=== PATIENT | male | born 1940 | race Caucasian/White ===

== ENCOUNTER 2016-03-29 10:40 | Inpatient (IN) | payer OTHER ==
[2016-03-29 11:04] VITALS: BMI 27.6
--- NOTE | 2016-03-29 13:53 | HP ---
Admission [facility] Chief Complaint: REHAB TX FOR DRUG TX Allergies/Adverse Reactions: Allergies Allergy/AdvReac Type Severity Reaction Status Date / Time No Known Allergies Allergy Verified 03/29/16 11:22 History of Present Illness: 75 Y/O H/M WITH A HX OF OPIOID DEPENDENCE AND USE OF COCAINE WITH SPORADIC CONSUMPTION OF A CAN OF BEER SEEKING REHAB TX. Exam Limitations: No Limitations - Ebola screening Have you traveled outside of the country in the last 21 days: No Have you had contact with anyone from an Ebola affected area: No Have you been sick,other than usual withdrawal symptoms: No Do you have a fever: No - Review of Systems Constitutional: No Symptoms Reported EENT: reports: Dental Problems (MISSING TEETH) Respiratory: reports: No Symptoms reported Cardiac: reports: No Symptoms Reported GI: reports: No Symptoms Reported : reports: No Symptoms Reported Musculoskeletal: reports: Joint Pain (LEFT KNEE PAIN/SWELLING DUE TO BUMPING INTO TABLE AT HOME 2 MONTHS AGO.) Integumentary: reports: No Symptoms Reported Neuro: reports: No Symptoms reported Endocrine: reports: No Symptoms Reported Hematology: reports: No Symptoms Reported Psychiatric: reports: Orientated x3 Other Systems: Reviewed and Negative Patient History - Patient Medical History Hx Anemia: No Hx Asthma: No Hx Chronic Obstructive Pulmonary Disease (COPD): No Hx Cardiac Disorders: No Hx Hypertension: No Hx Hypercholesterolemia: No HX Cerebrovascular Accident: No Hx Seizures: No Hx Diabetes: No Hx Gastrointestinal Disorders: No Hx Liver Disease: No Hx Genitourinary Disorders: No Hx Sexually Transmitted Disorders: No Hx Renal Disease (ESRD): No Hx Thyroid Disease: No Hx Human Immunodeficiency Virus (HIV): No (NEGATIVE HX) Hx Hepatitis C: No Hx Depression: No Hx Suicide Attempt: No (DENIES) Hx Bipolar Disorder: No Hx Schizophrenia: No - Patient Surgical History Past Surgical History: No Hx Neurologic Surgery: No Hx Cataract Extraction: No Hx Cardiac Surgery: No Hx Lung Surgery: No Hx Breast Surgery: No Hx Breast Biopsy: No Hx Abdominal Surgery: No Hx Appendectomy: No Hx Cholecystectomy: No Hx Genitourinary Surgery: No Hx Orthopedic Surgery: No Anesthesia Reaction: No - PPD History Previous Implant?: Yes Documented Results: Negative w/o proof Implanted On Prior [facility] Admission?: No PPD to be Administered?: Yes - Reproductive History Patient is a Female of Child Bearing Age (11 -55 yrs old): No (MALE) - Smoking Cessation Smoking history: Never smoked Have you smoked in the past 12 months: No Hx Chewing Tobacco Use: No Initiated information on smoking cessation: No - Substance & Tx. History Hx Alcohol Use: Yes (SPORADIC BEER) Hx Substance Use: Yes (COCAINE) Substance Use Type: Alcohol, Cocaine Hx Substance Use Treatment: Yes ([facility]) - Substances Abused Cocaine Route: Inhalation Frequency: 1-3 times last 30 days Amount used: 1 gram Age of first use: 62 Date of Last Use: 03/28/16 Alcohol Route: Oral Frequency: 1-3 times last 30 days Amount used: 1-2 beers Age of first use: 62 Date of Last Use: 03/29/16 Family Disease History - Family Disease History Family History: Denies Family Disease History: Other: Grandparent (GM RECENTLY AT 91) Admission Physical Exam [facility] - Vital Signs Vital Signs: Vital Signs - 24 hr 03/29/16 11:00 Temperature 98.7 F Pulse Rate 95 H Respiratory 18 Rate Blood Pressure 155/73 - Physical General Appearance: Yes: No Apparent Distress HEENTM: Yes: EOMI, Normocephalic, ERICA, Pharynx Normal Respiratory: Yes: Chest Non-Tender, Lungs Clear, Normal Breath Sounds, No Respiratory Distress Neck: Yes: Supple, Trachea in good position Breast: Yes: Breast Exam Deferred Cardiology: Yes: Regular Rhythm, Regular Rate, S1, S2 Abdominal: Yes: Normal Bowel Sounds, Non Tender, Soft Genitourinary: Yes: Other (N/C) Back: Yes: Within Normal Limits Musculoskeletal: Yes: full range of Motion, Gait Steady Extremities: Yes: Normal Range of Motion, Non-Tender, Swelling (LEFT KNEE SWELLING. 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 NML intact, Fully Oriented, Alert Integumentary: Yes: Dry, Warm Lymphatic: Yes: Within Normal Limits - Diagnostic (1) Cocaine dependence, uncomplicated Current Visit: Yes Status: Chronic (2) Varicose vein of leg Current Visit: Yes Status: Chronic (3) Left knee pain Current Visit: Yes Status: Chronic (4) Swelling of left knee joint Current Visit: Yes Status: Chronic Cleared for Admission [facility] - Detox or Rehab Claeared for Rehab Admission: Yes [facility] Breath Alcohol Content Breath Alcohol Content: 0.067 Urine Drug Screen - Results Drug Screen Negative: No Urine Drug Screen Results: PETRA-Cocaine, OPI-Opiates, MTD-Methadone
[2016-03-29] MEDS ORDERED: MAGNESIUM HYDROX 2400MG/30ML ORAL SUSPENSION 30 ML CUP PO PRN (14:11)
[2016-03-29] MEDS ORDERED: P-EPHED 60MG/TRIPROLIDI 2.5MG TABLET PO PRN (14:11)
[2016-03-29] MEDS ORDERED: MENTHOL/PHENOL 1 EACH UD MM PRN (14:11)
[2016-03-29] MEDS ORDERED: MAG HYDROX/AL HYDROX/SIMETH 30 ML UNIT-DOSE CUP PO PRN (14:11)
[2016-03-29] MEDS ORDERED: MAGNESIUM CITRATE 300 ML BOTTLE PO PRN (14:11)
[2016-03-29] MEDS ORDERED: ACETAMINOPHEN 325 MG TABLET (FP) PO PRN (14:11)
[2016-03-29] MEDS ORDERED: LOPERAMIDE HCL 2 MG CAPSULE PO PRN (14:11)
[2016-03-29] MEDS ORDERED: guaiFENesin/D-METHORPHAN HB 10 ML UNIT-DOSE CUPS PO PRN (14:11)
[2016-03-29] MEDS ORDERED: diphenhydrAMINE HCL 50 MG CAPSULE PO PRN (14:11)
[2016-03-29] MEDS ORDERED: TUBERCULIN PPD 5 TU/0.1ML VIAL ID ONE (19:42)
[2016-03-29] MEDS: THIAMINE HCL 100 MG TABLET (FP) PO SCH (21:07)
[2016-03-30] MEDS: PRENATAL VITAMINS W/ FOLIC ACID TABLET (FP) PO SCH (09:23)
[2016-03-30] MEDS: METHADONE HCL 10 MG TABLET PO SCH (09:23)
[2016-03-30 11:04] LABS: MCH 30.5 pg (25.7-33.7); MCHC 32.9 g/dl (32.0-35.9); MEAN CELL VOLUME 92.7 fl (80-96); MEAN PLT VOLUME 9.4 fl (7.5-11.1); PLATELET COUNT 260 K/MM3 (134-434); RDW 12.6 % (11.9-15.9); WHITE BLOOD COUNT 7.8 K/mm3 (4.0-10.0)
[2016-03-30 11:14] LABS: ALBUMIN 3.5 g/dl (3.4-5.0); ALK PHOS 83 U/L (45-117); ANION GAP 10 (8-16); BILIRUBIN,TOTAL 0.4 mg/dL (0.2-1.0); CALCIUM 8.6 mg/dL (8.5-10.1); CO2 30 mmol/L (21-32); CREATININE 0.9 mg/dL (0.7-1.3); GLUCOSE,RANDOM 94 mg/dL (74-106); SGOT/AST 28 U/L (15-37); SGPT/ALT 23 U/L (12-78); TOT PROT 7.8 g/dl (6.4-8.2)
[2016-03-30 11:31] LABS: SICKLE CELL SCREEN NEGATIVE (NEGATIVE)
--- NOTE | 2016-03-30 13:38 | EKG ---
Test Reason : Blood Pressure : / mmHG Vent. Rate : 066 BPM Atrial Rate : 066 BPM P-R Int : 144 ms QRS Dur : 074 ms QT Int : 448 ms P-R-T Axes : 062 051 052 degrees QTc Int : 469 ms SINUS RHYTHM WITH PREMATURE ATRIAL COMPLEXES IN A PATTERN OF BIGEMINY POSSIBLE LEFT ATRIAL ENLARGEMENT LEFT VENTRICULAR HYPERTROPHY ABNORMAL ECG NO PREVIOUS ECGS AVAILABLE Confirmed by GINA KAMINSKI, VAHID ([id number]) on 03/30/2016 1:37:21 PM Referred By: Stew Joya Confirmed By:VAHID FUENTES MD
[2016-03-30] MEDS: THIAMINE HCL 100 MG TABLET (FP) PO SCH (21:41)
[2016-03-31] MEDS: METHADONE HCL 10 MG TABLET PO SCH (07:06)
[2016-03-31] MEDS: PRENATAL VITAMINS W/ FOLIC ACID TABLET (FP) PO SCH (09:34)
[2016-03-31] MEDS: THIAMINE HCL 100 MG TABLET (FP) PO SCH (21:37)
[2016-04-01] MEDS: METHADONE HCL 40 MG DISPERSABLE TABLET PO SCH (06:22)
[2016-04-01] MEDS: PRENATAL VITAMINS W/ FOLIC ACID TABLET (FP) PO SCH (10:29)
--- NOTE | 2016-04-01 14:56 | HP ---
Psychiatrist Admission - Data Date of interview: 04/01/16 Admission source: [facility] Identifying data: This is the first [facility]west inpatient rehabilitation admission for this 75 year old male, father of one, residing in [place] apartment. Medical History: swollen legs,arthritis, knee pain, varicose veins. Psychiatric History: denies history of psychiatric treatment, on MMTP 40 mg/ daily. Physical/Sexual Abuse/Trauma History: denies history of sexual, physical and verbal abuse. Vital Signs: Vital Signs - 24 hr 04/01/16 04/01/16 04/01/16 00:30 03:30 07:13 Temperature 97.2 F L Pulse Rate 62 Respiratory 18 18 18 Rate Blood Pressure 158/86 Allergies/Adverse Reactions: Allergies Allergy/AdvReac Type Severity Reaction Status Date / Time No Known Allergies Allergy Verified 03/29/16 11:22 - Substance Abuse/Tx History Hx Alcohol Use: Yes Hx Substance Use: Yes Substance Use Type: Alcohol (beer 1-2 cans a day), Cocaine (daily use) Hx Substance Use Treatment: Yes - Admission Criteria Previous failed treatment: Yes Poor recovery environment: Yes Comorbidities: No Lacks judgement: Yes Mental Status Exam - Mental Status Exam Alert and Oriented to: Time, Place, Person Cognitive Function: Grossly Intact Patient Appearance: Well Groomed Mood: Hopeful Affect: Appropriate, Mood Congruent Patient Behavior: Appropriate, Cooperative Speech Pattern: Clear, Appropriate Voice Loudness: Normal Thought Process: Intact Thought Disorder: Not Present Hallucinations: Denies Suicidal Ideation: Denies Homicidal Ideation: Denies Insight/Judgement: Fair Sleep: Fair Appetite: Fair Muscle strength/Tone: Normal Gait/Station: Other (walking with be cane.) Psychiatric Findings - Problem List ([place] 1, 2,3) (1) Cocaine dependence, uncomplicated Current Visit: Yes Status: Chronic (2) Left knee pain Current Visit: Yes Status: Chronic (3) Swelling of left knee joint Current Visit: Yes Status: Chronic (4) Varicose vein of leg Current Visit: Yes Status: Chronic - Initial Treatment Plan Initial Treatment Plan: will monitor progress as needed.
[2016-04-01] MEDS: METHYL SALICYLATE/MENTHOL OINT 30 GM TUBE TP SCH (21:14)
[2016-04-01] MEDS: THIAMINE HCL 100 MG TABLET (FP) PO SCH (21:15)
[2016-04-02] MEDS: METHADONE HCL 40 MG DISPERSABLE TABLET PO SCH (05:58)
[2016-04-02] MEDS: METHYL SALICYLATE/MENTHOL OINT 30 GM TUBE TP SCH ×2 (10:08→21:42)
[2016-04-02] MEDS: PRENATAL VITAMINS W/ FOLIC ACID TABLET (FP) PO SCH (10:08)
[2016-04-02] MEDS: THIAMINE HCL 100 MG TABLET (FP) PO SCH (21:42)
[2016-04-03] MEDS: METHADONE HCL 40 MG DISPERSABLE TABLET PO SCH (06:09)
[2016-04-03] MEDS: PRENATAL VITAMINS W/ FOLIC ACID TABLET (FP) PO SCH (10:05)
[2016-04-03] MEDS: METHYL SALICYLATE/MENTHOL OINT 30 GM TUBE TP SCH ×2 (10:05→21:47)
[2016-04-03] MEDS: THIAMINE HCL 100 MG TABLET (FP) PO SCH (21:47)
[2016-04-04] MEDS: METHADONE HCL 40 MG DISPERSABLE TABLET PO SCH (06:32)
[2016-04-04] MEDS: PRENATAL VITAMINS W/ FOLIC ACID TABLET (FP) PO SCH (09:51)
[2016-04-04] MEDS: METHYL SALICYLATE/MENTHOL OINT 30 GM TUBE TP SCH ×2 (09:51→21:58)
[2016-04-04 14:38] LABS: URINE APPEARANCE CLEAR; URINE BILIRUBIN NEGATIVE (NEGATIVE); URINE BLOOD NEGATIVE (NEGATIVE); URINE COLOR YELLOW; URINE GLUCOSE (UA) NEGATIVE (NEGATIVE); URINE KETONE NEGATIVE (NEGATIVE); URINE LEUK ESTERASE NEGATIVE (NEGATIVE); URINE NITRITE NEGATIVE (NEGATIVE); URINE PROTEIN NEGATIVE (NEGATIVE); URINE UROBILINOGEN NEGATIVE E.U./dl (0.2-1.0)
[2016-04-04] MEDS: THIAMINE HCL 100 MG TABLET (FP) PO SCH (21:59)
[2016-04-04] MEDS: IBUPROFEN 400 MG TABLET (FP) PO PRN (21:59)
[2016-04-05] MEDS: METHADONE HCL 40 MG DISPERSABLE TABLET PO SCH (06:12)
[2016-04-05] MEDS: METHYL SALICYLATE/MENTHOL OINT 30 GM TUBE TP SCH ×2 (10:22→21:41)
[2016-04-05] MEDS: PRENATAL VITAMINS W/ FOLIC ACID TABLET (FP) PO SCH (10:22)
[2016-04-05] MEDS: THIAMINE HCL 100 MG TABLET (FP) PO SCH (21:41)
[2016-04-06] MEDS: METHADONE HCL 40 MG DISPERSABLE TABLET PO SCH (06:19)
[2016-04-06] MEDS: PRENATAL VITAMINS W/ FOLIC ACID TABLET (FP) PO SCH (09:52)
[2016-04-06] MEDS: METHYL SALICYLATE/MENTHOL OINT 30 GM TUBE TP SCH ×2 (09:53→22:19)
[2016-04-06] MEDS: IBUPROFEN 400 MG TABLET (FP) PO PRN (10:27)
[2016-04-06] MEDS: THIAMINE HCL 100 MG TABLET (FP) PO SCH (21:49)
[2016-04-07] MEDS: METHADONE HCL 40 MG DISPERSABLE TABLET PO SCH (06:09)
[2016-04-07] MEDS: PRENATAL VITAMINS W/ FOLIC ACID TABLET (FP) PO SCH (09:44)
[2016-04-07] MEDS: METHYL SALICYLATE/MENTHOL OINT 30 GM TUBE TP SCH ×2 (09:44→21:13)
[2016-04-07] MEDS: THIAMINE HCL 100 MG TABLET (FP) PO SCH (21:13)
[2016-04-08] MEDS: METHADONE HCL 40 MG DISPERSABLE TABLET PO SCH (06:17)
[2016-04-08] MEDS: PRENATAL VITAMINS W/ FOLIC ACID TABLET (FP) PO SCH (10:04)
[2016-04-08] MEDS: METHYL SALICYLATE/MENTHOL OINT 30 GM TUBE TP SCH ×2 (10:05→21:10)
[2016-04-08] MEDS: THIAMINE HCL 100 MG TABLET (FP) PO SCH (21:10)
[2016-04-09] MEDS: METHADONE HCL 40 MG DISPERSABLE TABLET PO SCH (05:57)
[2016-04-09] MEDS: METHYL SALICYLATE/MENTHOL OINT 30 GM TUBE TP SCH ×2 (10:13→21:06)
[2016-04-09] MEDS: PRENATAL VITAMINS W/ FOLIC ACID TABLET (FP) PO SCH (10:13)
[2016-04-09] MEDS: THIAMINE HCL 100 MG TABLET (FP) PO SCH (21:05)
[2016-04-10] MEDS: METHADONE HCL 40 MG DISPERSABLE TABLET PO SCH (05:51)
[2016-04-10] MEDS: PRENATAL VITAMINS W/ FOLIC ACID TABLET (FP) PO SCH (09:54)
[2016-04-10] MEDS: METHYL SALICYLATE/MENTHOL OINT 30 GM TUBE TP SCH ×2 (09:55→21:40)
[2016-04-10] MEDS: THIAMINE HCL 100 MG TABLET (FP) PO SCH (21:41)
[2016-04-11] MEDS: METHADONE HCL 40 MG DISPERSABLE TABLET PO SCH (06:31)
[2016-04-11] MEDS: METHYL SALICYLATE/MENTHOL OINT 30 GM TUBE TP SCH ×2 (09:57→21:58)
[2016-04-11] MEDS: PRENATAL VITAMINS W/ FOLIC ACID TABLET (FP) PO SCH (09:57)
[2016-04-11] MEDS: THIAMINE HCL 100 MG TABLET (FP) PO SCH (21:58)
[2016-04-12] MEDS: METHADONE HCL 40 MG DISPERSABLE TABLET PO SCH (06:27)
[2016-04-12] MEDS: METHYL SALICYLATE/MENTHOL OINT 30 GM TUBE TP SCH ×2 (12:15→21:30)
[2016-04-12] MEDS: PRENATAL VITAMINS W/ FOLIC ACID TABLET (FP) PO SCH (12:16)
[2016-04-12] MEDS: THIAMINE HCL 100 MG TABLET (FP) PO SCH (21:30)
[2016-04-13] MEDS: METHADONE HCL 40 MG DISPERSABLE TABLET PO SCH ×2 (06:26→06:27)
[2016-04-13] MEDS: PRENATAL VITAMINS W/ FOLIC ACID TABLET (FP) PO SCH (09:43)
[2016-04-13] MEDS: METHYL SALICYLATE/MENTHOL OINT 30 GM TUBE TP SCH ×2 (09:44→22:30)
[2016-04-13] MEDS: THIAMINE HCL 100 MG TABLET (FP) PO SCH (22:06)
[2016-04-14] MEDS: METHADONE HCL 40 MG DISPERSABLE TABLET PO SCH ×2 (06:42)
[2016-04-14] MEDS: METHYL SALICYLATE/MENTHOL OINT 30 GM TUBE TP SCH ×2 (09:54→21:03)
[2016-04-14] MEDS: PRENATAL VITAMINS W/ FOLIC ACID TABLET (FP) PO SCH (09:54)
[2016-04-14] MEDS: THIAMINE HCL 100 MG TABLET (FP) PO SCH (21:03)
[2016-04-15] MEDS: METHADONE HCL 40 MG DISPERSABLE TABLET PO SCH (05:58)
[2016-04-15] MEDS: PRENATAL VITAMINS W/ FOLIC ACID TABLET (FP) PO SCH (10:14)
[2016-04-15] MEDS: METHYL SALICYLATE/MENTHOL OINT 30 GM TUBE TP SCH ×2 (10:15→22:44)
[2016-04-15] MEDS: THIAMINE HCL 100 MG TABLET (FP) PO SCH (21:56)
[2016-04-16] MEDS: METHADONE HCL 40 MG DISPERSABLE TABLET PO SCH (06:04)
[2016-04-16] MEDS: PRENATAL VITAMINS W/ FOLIC ACID TABLET (FP) PO SCH (10:01)
[2016-04-16] MEDS: METHYL SALICYLATE/MENTHOL OINT 30 GM TUBE TP SCH ×2 (10:01→23:22)
[2016-04-16] MEDS ORDERED: LIDOCAINE 5% TOPICAL PATCH TP ONE (12:14)
[2016-04-16] MEDS: THIAMINE HCL 100 MG TABLET (FP) PO SCH (21:42)
[2016-04-17] MEDS: METHADONE HCL 40 MG DISPERSABLE TABLET PO SCH (06:40)
[2016-04-17] MEDS: METHYL SALICYLATE/MENTHOL OINT 30 GM TUBE TP SCH ×2 (09:56→21:26)
[2016-04-17] MEDS: LIDOCAINE 5% TOPICAL PATCH TP SCH (09:56)
[2016-04-17] MEDS: PRENATAL VITAMINS W/ FOLIC ACID TABLET (FP) PO SCH (09:56)
--- NOTE | 2016-04-17 10:48 | PN ---
Psychiatric Progress Note Vital Signs: Vital Signs Period Temp Pulse Resp BP Sys/San Pulse Ox Last 24 Hr 97.8 F 57 18-18 144/85 Date of Session: 04/17/16 Chief Complaint:: Anxiety HPI: Patient addressing Cocaine Dependence ROS: Pain left knee, Varicose vein of legs Current Medications: Active Medications Generic Name Dose Route Start Last Admin Trade Name Freq PRN Reason Stop Dose Admin Acetaminophen 650 mg 03/29/16 14:11 Tylenol - PO Q4H PRN PAIN Al Hydroxide/Mg Hydroxide 30 ml 03/29/16 14:11 Mylanta Oral Suspension - PO Q6H PRN DYSPEPSIA Diphenhydramine HCl 50 mg 03/29/16 14:11 04/13/16 22:06 Benadryl - PO 50 mg HSMR1 PRN Administration INSOMNIA Eucalyptus/Menthol/Phenol/Sorbitol 1 each 03/29/16 14:11 Cepastat Lozenge - MM Q4H PRN SORE THROAT Guaifenesin 10 ml 03/29/16 14:11 Robitussin Dm - PO Q6H PRN COUGH Ibuprofen 400 mg 03/29/16 14:11 04/06/16 10:27 Motrin - PO 400 mg Q6H PRN Administration SEVERE PAIN Lidocaine 1 patch 04/17/16 10:00 04/17/16 09:56 Lidoderm Patch - TP 1 patch DAILY FRANKO Administration Loperamide HCl 4 mg 03/29/16 14:11 Imodium - PO Q6H PRN DIARRHEA Magnesium Citrate 300 ml 03/29/16 14:11 Citroma - PO Q48H PRN CONSTIPATION Magnesium Hydroxide 30 ml 03/29/16 14:11 Milk Of Magnesia - PO DAILY PRN CONSTIPATION Methadone HCl 40 mg 04/13/16 06:00 04/17/16 06:40 Dolophine - PO 04/19/16 05:59 40 mg DAILY@0600 FRANKO Administration Methyl Salicylate 1 applic 04/01/16 22:00 04/17/16 09:56 José Luis-Bolanos - TP Not Given BID FRANKO Multivit/Folic Acid/Iron 1 tab 03/30/16 10:00 04/17/16 09:56 Vitamins ([facility]) - PO 1 tab DAILY FRANKO Administration Pseudoephedrine/Triprolidine 1 combo 03/29/16 14:11 Actifed - PO TID PRN NASAL CONGESTION Thiamine HCl 100 mg 03/29/16 22:00 04/16/16 21:42 Vitamin B1 - PO 100 mg HS FRANKO Administration Current Side Effect: No Lab tests ordered: Yes Lab tests reviewed: Yes Provider note:: Patient reports that he has been feeling anxious and requests that medication be ordered for that. Anxiolytic as well as adverse-effects of Vistaril discussed with patient and he agreed to try it Total face to face time:: 25 Mental Status Exam - Mental Status Exam Alert and Oriented to: Time, Place, Person Cognitive Function: Fair Patient Appearance: Well Groomed Mood: Anxious Affect: Appropriate Patient Behavior: Cooperative Speech Pattern: Clear Voice Loudness: Normal Thought Process: Intact Thought Disorder: Not Present Hallucinations: Denies Suicidal Ideation: Denies Insight/Judgement: Fair Sleep: Fair Appetite: Good Muscle strength/Tone: Normal Gait/Station: Normal Psychiatric Treatment Plan - Problem List (1) Cocaine dependence, uncomplicated Current Visit: Yes (2) Left knee pain Current Visit: Yes (3) Swelling of left knee joint Current Visit: Yes (4) Varicose vein of leg Current Visit: Yes Initial treatment plan: 1) Start Vistaril 25 mg po Q 4 hrs prn for anxiety. 2) Monitor progress
[2016-04-17] MEDS: THIAMINE HCL 100 MG TABLET (FP) PO SCH (21:26)
[2016-04-18] MEDS: METHADONE HCL 40 MG DISPERSABLE TABLET PO SCH (06:33)
[2016-04-18] MEDS: PRENATAL VITAMINS W/ FOLIC ACID TABLET (FP) PO SCH (09:57)
[2016-04-18] MEDS: LIDOCAINE 5% TOPICAL PATCH TP SCH (09:57)
[2016-04-18] MEDS: METHYL SALICYLATE/MENTHOL OINT 30 GM TUBE TP SCH ×2 (09:58→21:38)
[2016-04-18] MEDS: THIAMINE HCL 100 MG TABLET (FP) PO SCH (21:38)
[2016-04-19] MEDS: METHADONE HCL 40 MG DISPERSABLE TABLET PO SCH (06:25)
[2016-04-19] MEDS: METHYL SALICYLATE/MENTHOL OINT 30 GM TUBE TP SCH ×2 (09:31→22:09)
[2016-04-19] MEDS: LIDOCAINE 5% TOPICAL PATCH TP SCH (09:31)
[2016-04-19] MEDS: PRENATAL VITAMINS W/ FOLIC ACID TABLET (FP) PO SCH (09:32)
[2016-04-19] MEDS: THIAMINE HCL 100 MG TABLET (FP) PO SCH (21:35)
[2016-04-19] MEDS: hydrOXYzine PAMOATE 25 MG CAPSULE (FP) PO PRN (21:36)
[2016-04-20] MEDS: METHADONE HCL 40 MG DISPERSABLE TABLET PO SCH (05:59)
[2016-04-20] MEDS: LIDOCAINE 5% TOPICAL PATCH TP SCH (09:44)
[2016-04-20] MEDS: PRENATAL VITAMINS W/ FOLIC ACID TABLET (FP) PO SCH (09:44)
[2016-04-20] MEDS: hydrOXYzine PAMOATE 25 MG CAPSULE (FP) PO PRN ×2 (09:45→21:31)
[2016-04-20] MEDS: METHYL SALICYLATE/MENTHOL OINT 30 GM TUBE TP SCH ×2 (10:29→21:32)
[2016-04-20] MEDS: THIAMINE HCL 100 MG TABLET (FP) PO SCH (21:31)
[2016-04-21] MEDS: METHADONE HCL 40 MG DISPERSABLE TABLET PO SCH (06:20)
[2016-04-21] MEDS: LIDOCAINE 5% TOPICAL PATCH TP SCH (09:34)
[2016-04-21] MEDS: PRENATAL VITAMINS W/ FOLIC ACID TABLET (FP) PO SCH (09:34)
[2016-04-21] MEDS: METHYL SALICYLATE/MENTHOL OINT 30 GM TUBE TP SCH ×2 (09:35→21:54)
[2016-04-21] MEDS: hydrOXYzine PAMOATE 25 MG CAPSULE (FP) PO PRN ×2 (09:36→21:38)
[2016-04-21] MEDS: THIAMINE HCL 100 MG TABLET (FP) PO SCH (21:38)
[2016-04-22] MEDS: METHADONE HCL 40 MG DISPERSABLE TABLET PO SCH (06:21)
[2016-04-22] MEDS: PRENATAL VITAMINS W/ FOLIC ACID TABLET (FP) PO SCH (09:48)
[2016-04-22] MEDS: LIDOCAINE 5% TOPICAL PATCH TP SCH (09:49)
[2016-04-22] MEDS: hydrOXYzine PAMOATE 25 MG CAPSULE (FP) PO PRN ×2 (09:50→21:45)
[2016-04-22] MEDS: METHYL SALICYLATE/MENTHOL OINT 30 GM TUBE TP SCH ×2 (09:50→21:45)
[2016-04-22] MEDS: THIAMINE HCL 100 MG TABLET (FP) PO SCH (21:45)
[2016-04-23] MEDS: METHADONE HCL 40 MG DISPERSABLE TABLET PO SCH (06:07)
[2016-04-23] MEDS: PRENATAL VITAMINS W/ FOLIC ACID TABLET (FP) PO SCH (09:25)
[2016-04-23] MEDS: METHYL SALICYLATE/MENTHOL OINT 30 GM TUBE TP SCH ×2 (09:26→23:05)
[2016-04-23] MEDS: hydrOXYzine PAMOATE 25 MG CAPSULE (FP) PO PRN (09:26)
[2016-04-23] MEDS: LIDOCAINE 5% TOPICAL PATCH TP SCH (09:27)
--- NOTE | 2016-04-23 11:13 | PN ---
Psychiatric Progress Note Vital Signs: Vital Signs Period Temp Pulse Resp BP Sys/San [place]ulse Ox Last 24 Hr 97.5 F 70-70 18-18 152-156/69-80 Date of Session: 04/23/16 Chief Complaint:: Anxiety HPI: Patient addressing Alcohol Dependence ROS: Left knee pain, Varicose Vein Current Medications: Active Medications Generic Name Dose Route Start Last Admin Trade Name Freq PRN Reason Stop Dose Admin Acetaminophen 650 mg 03/29/16 14:11 Tylenol - PO Q4H PRN PAIN Al Hydroxide/Mg Hydroxide 30 ml 03/29/16 14:11 Mylanta Oral Suspension - PO Q6H PRN DYSPEPSIA Diphenhydramine HCl 50 mg 03/29/16 14:11 04/13/16 22:06 Benadryl - PO 50 mg HSMR1 PRN Administration INSOMNIA Eucalyptus/Menthol/Phenol/Sorbitol 1 each 03/29/16 14:11 Cepastat Lozenge - MM Q4H PRN SORE THROAT Guaifenesin 10 ml 03/29/16 14:11 Robitussin Dm - PO Q6H PRN COUGH Hydroxyzine Pamoate 50 mg 04/23/16 11:11 Vistaril - PO Q4H PRN ANXIETY Ibuprofen 400 mg 03/29/16 14:11 04/06/16 10:27 Motrin - PO 400 mg Q6H PRN Administration SEVERE PAIN Lidocaine 1 patch 04/17/16 10:00 04/23/16 09:27 Lidoderm Patch - TP 1 patch DAILY FRANKO Administration Loperamide HCl 4 mg 03/29/16 14:11 Imodium - PO Q6H PRN DIARRHEA Magnesium Citrate 300 ml 03/29/16 14:11 Citroma - PO Q48H PRN CONSTIPATION Magnesium Hydroxide 30 ml 03/29/16 14:11 Milk Of Magnesia - PO DAILY PRN CONSTIPATION Methadone HCl 40 mg 04/19/16 06:00 04/23/16 06:07 Dolophine - PO 40 mg DAILY@0600 FRANKO Administration Methyl Salicylate 1 applic 04/01/16 22:00 04/23/16 09:26 José Luis-Bolanos - TP Not Given BID FRANKO Multivit/Folic Acid/Iron 1 tab 03/30/16 10:00 04/23/16 09:25 Vitamins ([facility]) - PO 1 tab DAILY FRANKO Administration Pseudoephedrine/Triprolidine 1 combo 03/29/16 14:11 Actifed - PO TID PRN NASAL CONGESTION Thiamine HCl 100 mg 03/29/16 22:00 04/22/16 21:45 Vitamin B1 - PO 100 mg HS FRANKO Administration Medication(s) Change(s): Increase Vistaril dosage to 50 mg po Q 4hrs prn for anxiety Current Side Effect: No Lab tests ordered: Yes Lab tests reviewed: Yes Provider note:: Patient reports that he still experiences difficulty to sleep despite taking Vistaril 25 mg po Q 4hrs prn. Requests that Vistaril dosage be increased Total face to face time:: 25 Mental Status Exam - Mental Status Exam Alert and Oriented to: Time, Place, Person Cognitive Function: Fair Patient Appearance: Well Groomed Mood: Hopeful, Euthymic Affect: Appropriate Patient Behavior: Cooperative Speech Pattern: Clear Voice Loudness: Normal Thought Process: Intact Thought Disorder: Not Present Hallucinations: Denies Suicidal Ideation: Denies Homicidal Ideation: Denies Insight/Judgement: Fair Sleep: Fair Appetite: Good Muscle strength/Tone: Normal Gait/Station: Normal Psychiatric Treatment Plan - Problem List (1) Cocaine dependence, uncomplicated Current Visit: Yes (2) Left knee pain Current Visit: Yes (3) Swelling of left knee joint Current Visit: Yes (4) Varicose vein of leg Current Visit: Yes Initial treatment plan: 1) Discontinue Vistaril 25 mg po Q 4hrs prn for anxiety. 2) Start Viistaril 50 mg po Q 4 hrs prn for anxiety. 3) Monitor progress
[2016-04-23] MEDS: hydrOXYzine PAMOATE 50 MG CAPSULE (FP) PO PRN (21:58)
[2016-04-23] MEDS: THIAMINE HCL 100 MG TABLET (FP) PO SCH (21:58)
[2016-04-24] MEDS: METHADONE HCL 40 MG DISPERSABLE TABLET PO SCH (06:18)
[2016-04-24] MEDS: LIDOCAINE 5% TOPICAL PATCH TP SCH (09:44)
[2016-04-24] MEDS: PRENATAL VITAMINS W/ FOLIC ACID TABLET (FP) PO SCH (09:44)
[2016-04-24] MEDS: METHYL SALICYLATE/MENTHOL OINT 30 GM TUBE TP SCH ×2 (09:45→21:10)
[2016-04-24] MEDS: hydrOXYzine PAMOATE 50 MG CAPSULE (FP) PO PRN ×2 (09:45→21:10)
[2016-04-24] MEDS: THIAMINE HCL 100 MG TABLET (FP) PO SCH (21:10)
[2016-04-25] MEDS: METHADONE HCL 40 MG DISPERSABLE TABLET PO SCH (05:49)
--- NOTE | 2016-04-25 09:15 | PN ---
Psychiatric Progress Note Vital Signs: Vital Signs Period Temp Pulse Resp BP Sys/San [place]ulse Ox Last 24 Hr 98.3 F 55 18-18 159/82 Date of Session: 04/25/16 Chief Complaint:: Psychiatrist Discharge Note HPI: Patient addressing Cocaine Dependence ROS: Left knee pain, Varicose Vein Current Medications: Active Medications Generic Name Dose Route Start Last Admin Trade Name Freq PRN Reason Stop Dose Admin Acetaminophen 650 mg 03/29/16 14:11 Tylenol - PO Q4H PRN PAIN Al Hydroxide/Mg Hydroxide 30 ml 03/29/16 14:11 Mylanta Oral Suspension - PO Q6H PRN DYSPEPSIA Diphenhydramine HCl 50 mg 03/29/16 14:11 04/13/16 22:06 Benadryl - PO 50 mg HSMR1 PRN Administration INSOMNIA Eucalyptus/Menthol/Phenol/Sorbitol 1 each 03/29/16 14:11 Cepastat Lozenge - MM Q4H PRN SORE THROAT Guaifenesin 10 ml 03/29/16 14:11 Robitussin Dm - PO Q6H PRN COUGH Hydroxyzine Pamoate 50 mg 04/23/16 11:11 04/24/16 21:10 Vistaril - PO 50 mg Q4H PRN Administration ANXIETY Ibuprofen 400 mg 03/29/16 14:11 04/06/16 10:27 Motrin - PO 400 mg Q6H PRN Administration SEVERE PAIN Lidocaine 1 patch 04/17/16 10:00 04/24/16 09:44 Lidoderm Patch - TP 1 patch DAILY FRANKO Administration Loperamide HCl 4 mg 03/29/16 14:11 Imodium - PO Q6H PRN DIARRHEA Magnesium Citrate 300 ml 03/29/16 14:11 Citroma - PO Q48H PRN CONSTIPATION Magnesium Hydroxide 30 ml 03/29/16 14:11 Milk Of Magnesia - PO DAILY PRN CONSTIPATION Methadone HCl 40 mg 04/25/16 06:00 04/25/16 05:49 Dolophine - PO 05/01/16 05:59 40 mg DAILY@0600 FRANKO Administration Methyl Salicylate 1 applic 04/01/16 22:00 04/24/16 21:10 José Luis-Bolanos - TP Not Given BID FRANKO Multivit/Folic Acid/Iron 1 tab 03/30/16 10:00 04/24/16 09:44 Vitamins ([facility]) - PO 1 tab DAILY FRANKO Administration Pseudoephedrine/Triprolidine 1 combo 03/29/16 14:11 Actifed - PO TID PRN NASAL CONGESTION Thiamine HCl 100 mg 03/29/16 22:00 04/24/16 21:10 Vitamin B1 - PO 100 mg HS FRANKO Administration Current Side Effect: No Lab tests ordered: Yes Lab tests reviewed: Yes Provider note:: Patient will complete this program on 04/26/16. He has met his treatment goals and will continue to address his issues in outpatient treatment at [facility]. Told health underwriter that from his participation in this program, he has learned the importance having a sober support network in order to maintain abstinence. He is stable for discharge on 04/26/16 Total face to face time:: 35 Mental Status Exam - Mental Status Exam Alert and Oriented to: Time, Place, Person Cognitive Function: Fair Patient Appearance: Well Groomed Mood: Hopeful, Euthymic Affect: Appropriate Patient Behavior: Cooperative Speech Pattern: Clear Voice Loudness: Normal Thought Process: Intact Thought Disorder: Not Present Hallucinations: Denies Suicidal Ideation: Denies Homicidal Ideation: Denies Insight/Judgement: Fair Sleep: Fair Appetite: Fair Muscle strength/Tone: Normal Gait/Station: Normal Psychiatric Treatment Plan - Problem List (1) Cocaine dependence, uncomplicated Current Visit: Yes (2) Left knee pain Current Visit: Yes (3) Swelling of left knee joint Current Visit: Yes (4) Varicose vein of leg Current Visit: Yes Initial treatment plan: Patient will be discharged tomorrow and referred t [facility] for outpatient treatment
[2016-04-25] MEDS: PRENATAL VITAMINS W/ FOLIC ACID TABLET (FP) PO SCH (09:49)
[2016-04-25] MEDS: LIDOCAINE 5% TOPICAL PATCH TP SCH (09:50)
[2016-04-25] MEDS: METHYL SALICYLATE/MENTHOL OINT 30 GM TUBE TP SCH ×2 (09:50→23:04)
[2016-04-25] MEDS: hydrOXYzine PAMOATE 50 MG CAPSULE (FP) PO PRN ×2 (09:51→21:18)
[2016-04-25] MEDS: THIAMINE HCL 100 MG TABLET (FP) PO SCH (21:18)
[2016-04-26] MEDS: METHADONE HCL 40 MG DISPERSABLE TABLET PO SCH (06:19)
[2016-04-26] MEDS: hydrOXYzine PAMOATE 50 MG CAPSULE (FP) PO PRN ×2 (06:20→09:45)
[2016-04-26 06:46] VITALS: TEMP 98.2
[2016-04-26 07:37] VITALS: BP 159/83; PULSE 61
[2016-04-26] MEDS: PRENATAL VITAMINS W/ FOLIC ACID TABLET (FP) PO SCH (09:08)
[2016-04-26] MEDS: LIDOCAINE 5% TOPICAL PATCH TP SCH (09:09)
[2016-04-26] MEDS: METHYL SALICYLATE/MENTHOL OINT 30 GM TUBE TP SCH (09:11)
== END 2016-04-26 10:20 | disposition home or self-care (01) | DRG 895 ==
LOC: YASAS 10:40 → Y3W 12:13
PROVIDERS: ADMIT Psychiatry & Neurology Psychiatry; ATTEND Psychiatry & Neurology Psychiatry
PROC: HZ42ZZZ Group Counseling for Substance Abuse Treatment, Cognitive-Behavioral (ICD-10-PCS; principal; 2016-04-26)
DX: F14.20 Cocaine dependence, uncomplicated (principal); M25.561 Pain in right knee; I83.93 Asymptomatic varicose veins of bilateral lower extremities
CPT/HCPCS: 36415; 80053; 81003; 85027; 85660; 86593; 93005; 93010

== ENCOUNTER 2017-07-21 10:36 | Inpatient (IN) | payer OTHER ==
[2017-07-21 11:29] VITALS: BMI 26.5
--- NOTE | 2017-07-21 13:53 | HP ---
Admission ROS [facility] Chief Complaint: I want to go to rehab Allergies/Adverse Reactions: Allergies Allergy/AdvReac Type Severity Reaction Status Date / Time No Known Allergies Allergy Verified 07/21/17 11:46 History of Present Illness: 76 years old male with long history of cocaine dependence has depression hypertension ambulation with cane methadone 40 mg po daily is admitted to rehab Exam Limitations: No Limitations - Ebola screening Have you traveled outside of the country in the last 21 days: No (N) Have you had contact with anyone from an Ebola affected area: No Have you been sick,other than usual withdrawal symptoms: No Do you have a fever: No - Review of Systems Constitutional: Changes in sleep EENT: reports: No Symptoms Reported Respiratory: reports: No Symptoms reported Cardiac: reports: No Symptoms Reported GI: reports: No Symptoms Reported : reports: No Symptoms Reported Musculoskeletal: reports: Joint Pain (left knee trauma x 2-3 weeks ago) Integumentary: reports: No Symptoms Reported Neuro: reports: No Symptoms reported Endocrine: reports: No Symptoms Reported Hematology: reports: No Symptoms Reported Psychiatric: reports: Judgement Intact, Orientated x3, Anxious, Depressed Other Systems: Reviewed and Negative Patient History - Patient Medical History Hx Anemia: No Hx Asthma: No Hx Chronic Obstructive Pulmonary Disease (COPD): No Hx Cancer: No Hx Cardiac Disorders: No Hx Congestive Heart Failure: No Hx Hypertension: No Hx Hypercholesterolemia: No Hx Pacemaker: No HX Cerebrovascular Accident: No Hx Seizures: No Hx Dementia: No Hx Diabetes: No Hx Gastrointestinal Disorders: No Hx Liver Disease: No Hx Genitourinary Disorders: No Hx Sexually Transmitted Disorders: No Hx Renal Disease (ESRD): No Hx Thyroid Disease: No Hx Human Immunodeficiency Virus (HIV): No (NEGATIVE HX) Hx Hepatitis C: No Hx Depression: Yes Hx Suicide Attempt: No Hx Bipolar Disorder: No Hx Schizophrenia: No - Patient Surgical History Past Surgical History: No Hx Neurologic Surgery: No Hx Cataract Extraction: No Hx Cardiac Surgery: No Hx Lung Surgery: No Hx Breast Surgery: No Hx Breast Biopsy: No Hx Abdominal Surgery: No Hx Appendectomy: No Hx Cholecystectomy: No Hx Genitourinary Surgery: No Hx Orthopedic Surgery: No - PPD History Previous Implant?: Yes Documented Results: Negative w/proof Implanted On Prior R Admission?: Yes Date: 03/31/16 PPD to be Administered?: Yes - Smoking Cessation Smoking history: Never smoked Have you smoked in the past 12 months: No Hx Chewing Tobacco Use: No Initiated information on smoking cessation: No - Substance & Tx. History Hx Alcohol Use: Yes Hx Substance Use: Yes Substance Use Type: Alcohol, Cocaine, Heroin Hx Substance Use Treatment: Yes (2016 [facility]) - Substances Abused Cocaine Route: Inhalation Frequency: 1-2 times per week Amount used: $30 Age of first use: 62 Date of Last Use: 07/20/17 Alcohol Route: Oral Frequency: Daily Amount used: 1-2 12 oz beers Age of first use: 62 Date of Last Use: 07/21/17 Family Disease History - Family Disease History Family Disease History: Other: Grandparent (GM RECENTLY AT 91), Father ( ), Mother () Admission Physical Exam [facility] - Vital Signs Vital Signs: Vital Signs - 24 hr 07/21/17 11:25 Temperature 97.6 F Pulse Rate 68 Respiratory 18 Rate Blood Pressure 166/82 - Physical General Appearance: Yes: No Apparent Distress, Nourished, Appropriately Dressed HEENTM: Yes: Hearing grossly Normal, Normocephalic, Normal Voice Respiratory: Yes: Chest Non-Tender, Lungs Clear, Normal Breath Sounds, No Respiratory Distress, No Accessory Muscle Use Neck: Yes: Supple, Trachea in good position Breast: Yes: Breasts Symetrical, No Discharge Cardiology: Yes: Regular Rhythm, Regular Rate, S1, S2 Abdominal: Yes: Normal Bowel Sounds, Non Tender, Flat, Soft Genitourinary: Yes: Within Normal Limits Back: Yes: Normal Inspection Musculoskeletal: Yes: Gait Steady (cane), Joint swelling (left knee), Muscle Pain (left knee), Muscle weakness (lef knee) Extremities: Yes: Non-Tender, Swelling (left knee) Neurological: Yes: Fully Oriented, Alert, Normal Response, Depressed Affect Integumentary: Yes: Normal Color, Warm Lymphatic: Yes: Within Normal Limits - Diagnostic (1) Methadone maintenance therapy patient Current Visit: Yes Status: Chronic Comment: 40 mg (2) Hypertension Current Visit: Yes Status: Chronic Qualifiers: Hypertension type: essential hypertension Qualified Code(s): I10 - Essential (primary) hypertension (3) Use of cane as ambulatory aid Current Visit: Yes Status: Chronic (4) Cocaine dependence, uncomplicated Current Visit: Yes Status: Acute (5) Swelling of left knee joint Current Visit: Yes Status: Chronic Cleared for Admission [facility] - Detox or Rehab [facility] Level of Care: Observation Bed Detox Regimen/Protocol: Not Applicable Claeared for Rehab Admission: Yes [facility] Breath Alcohol Content Breath Alcohol Content: 0.061 Urine Drug Screen - Results Drug Screen Negative: No Urine Drug Screen Results: PETRA-Cocaine, MTD-Methadone Inpatient Rehab Admission - Initial Determination Are CD services needed?: Yes Free of communicable disease: Yes Not in need of hospitalization: Yes - Rehab Admission Criteria Previous failed treatment: Yes Poor recovery environment: Yes Comorbidities: Yes Lacks judgement: No Patient is meeting Inpatient Rehab admission criteria:: Yes
[2017-07-21] MEDS ORDERED: MAGNESIUM HYDROX 2400MG/30ML ORAL SUSPENSION 30 ML CUP PO PRN (13:56)
[2017-07-21] MEDS ORDERED: MENTHOL/PHENOL 1 EACH UD MM PRN (13:56)
[2017-07-21] MEDS ORDERED: ACETAMINOPHEN 325 MG TABLET (FP) PO PRN (13:56)
[2017-07-21] MEDS ORDERED: MAG HYDROX/AL HYDROX/SIMETH 30 ML UNIT-DOSE CUP PO PRN (13:56)
[2017-07-21] MEDS ORDERED: guaiFENesin/D-METHORPHAN HB 10 ML UNIT-DOSE CUPS PO PRN (13:56)
[2017-07-21] MEDS ORDERED: MAGNESIUM CITRATE 300 ML BOTTLE PO PRN (13:56)
[2017-07-21] MEDS ORDERED: LOPERAMIDE HCL 2 MG CAPSULE PO PRN (13:56)
[2017-07-21] MEDS ORDERED: P-EPHED 60MG/TRIPROLIDI 2.5MG TABLET PO PRN (13:56)
[2017-07-21] MEDS ORDERED: TUBERCULIN PPD 5 TU/0.1ML VIAL ID ONE (18:10)
[2017-07-21] MEDS: amLODIPine BESYLATE 5 MG TABLET (FP) PO SCH ×2 (18:15→21:57)
[2017-07-21] MEDS: THIAMINE HCL 100 MG TABLET (FP) PO SCH (21:57)
[2017-07-22 02:20] LABS: URINE APPEARANCE CLEAR; URINE BILIRUBIN NEGATIVE (<2.0 mg/dL); URINE COLOR STRAW; URINE GLUCOSE (UA) NEGATIVE (NEGATIVE); URINE KETONE NEGATIVE (NEGATIVE); URINE LEUK ESTERASE NEGATIVE (NEGATIVE); URINE NITRITE NEGATIVE (NEGATIVE); URINE PROTEIN NEGATIVE (NEGATIVE); URINE UROBILINOGEN NEGATIVE mg/dL (0.2-1.0)
--- NOTE | 2017-07-22 09:01 | HP ---
Psychiatrist Admission - Data Date of interview: 07/22/17 Admission source: Self-referred Identifying data: This is the second [facility] admission for this 76 years old male, father of a 41 years old son, unemployed receiving social security, living in a [place] apartment Medical History: Significant for hypertension, arthritis mostly of left knee, and varicose vein. Patient is on methadone 40mg/day Psychiatric History: Denies history of previous psychiatric treatment Physical/Sexual Abuse/Trauma History: Denies history of emotional, physical or sexual abuse as well as DV relationship. No service Additional Comment: Denies criminal history Vital Signs: Vital Signs - 24 hr 07/21/17 07/21/17 07/21/17 11:25 17:55 21:00 Temperature 97.6 F 99.1 F Pulse Rate 68 64 62 Respiratory 18 18 Rate Blood Pressure 166/82 150/87 169/81 07/22/17 07/22/17 07/22/17 01:03 03:30 07:11 Temperature 99.9 F H Pulse Rate 64 Respiratory 18 18 18 Rate Blood Pressure 152/73 Allergies/Adverse Reactions: Allergies Allergy/AdvReac Type Severity Reaction Status Date / Time No Known Allergies Allergy Verified 07/21/17 11:46 Date of last physical exam: 07/21/17 Concur with the findings of this exam: Yes - Substance Abuse/Tx History Hx Alcohol Use: Yes Hx Substance Use: Yes Substance Use Type: Alcohol (Started drinking alcohol at age 62, consumes 1-2x 12oz of beer daily. Last drank on 07/21/17), Cocaine (Started using cocaine at age 62, consumes $30 worth 1-2 times weekly. Last used on 07/20/17) Hx Substance Use Treatment: Yes (one previous inpt rehab @ [facility]. Currently attends [facility]) Mental Status Exam - Mental Status Exam Alert and Oriented to: Time Cognitive Function: Fair Patient Appearance: Well Groomed Mood: Anxious (mildly) Affect: Appropriate Patient Behavior: Cooperative Speech Pattern: Clear Voice Loudness: Normal Thought Process: Intact, Goal Oriented Hallucinations: Denies Suicidal Ideation: Denies Homicidal Ideation: Denies Insight/Judgement: Fair Sleep: Fair Appetite: Fair Muscle strength/Tone: Normal Gait/Station: Normal Psychiatric Findings - Problem List ([place] 1, 2,3) (1) Alcohol dependence Current Visit: Yes Status: Acute (2) Cocaine dependence Current Visit: Yes Status: Acute (3) Opioid dependence on agonist therapy Current Visit: Yes Status: Chronic (4) Substance-induced anxiety disorder Current Visit: Yes Status: Acute (5) Hypertension Current Visit: Yes Status: Chronic Qualifiers: Hypertension type: essential hypertension Qualified Code(s): I10 - Essential (primary) hypertension (6) Swelling of left knee joint Current Visit: Yes Status: Chronic (7) Use of cane as ambulatory aid Current Visit: Yes Status: Chronic (8) Left knee pain Current Visit: No Status: Chronic - Initial Treatment Plan Initial Treatment Plan: Monitor progress
[2017-07-22 10:13] LABS: HEMATOCRIT 37.2 % (35.4-49); HEMOGLOBIN 12.2 GM/dL (11.7-16.9); MCH 31.8 pg (25.7-33.7); MCHC 32.9 g/dl (32.0-35.9); MEAN CELL VOLUME 96.7 fl (80-96); MEAN PLT VOLUME 9.7 fl (7.5-11.1); PLATELET COUNT 243 K/MM3 (134-434); RBC 3.85 M/mm3 (4.00-5.60); RDW 12.7 % (11.9-15.9); WHITE BLOOD COUNT 5.6 K/mm3 (4.0-10.0)
[2017-07-22] MEDS: amLODIPine BESYLATE 5 MG TABLET (FP) PO SCH ×2 (10:40→22:03)
[2017-07-22] MEDS: PRENATAL VITAMINS W/ FOLIC ACID TABLET (FP) PO SCH (10:40)
[2017-07-22] MEDS: METHADONE HCL 40 MG DISPERSABLE TABLET PO SCH (10:40)
[2017-07-22 11:59] LABS: ALBUMIN 3.3 g/dl (3.4-5.0); ANION GAP 7 (8-16); BLOOD UREA NITROGEN 10 mg/dL (7-18); CHLORIDE 102 mmol/L (98-107); CO2 31 mmol/L (21-32); CREATININE 0.7 mg/dL (0.7-1.3); GLUCOSE,RANDOM 82 mg/dL (74-106); POTASSIUM 4.3 mmol/L (3.5-5.1); SGOT/AST 68 U/L (15-37); SGPT/ALT 46 U/L (12-78); SODIUM 140 mmol/L (136-145)
[2017-07-22 12:01] LABS: ALK PHOS 91 U/L (45-117); BILIRUBIN,TOTAL 0.4 mg/dL (0.2-1.0); TOT PROT 7.8 g/dl (6.4-8.2)
[2017-07-22] MEDS ORDERED: LACTULOSE 20 GM/30 ML UDC (FOR ORAL USE ONLY) PO PRN (12:56)
--- NOTE | 2017-07-22 13:15 | PN ---
[facility] Progress Note Note: Patient c/o of left knee swelling, chronic b/l knee pain. As per patient he has b/l OA and was seen in the ED three months ago for left knee swelling. Kadie denies SOB, paresthesia, CP. Vital Signs Temperature 99.9 F H 07/22/17 07:11 Pulse Rate 64 07/22/17 07:11 Respiratory Rate 18 07/22/17 07:11 Blood Pressure 152/73 07/22/17 07:11 O2 Sat by Pulse Oximetry (%) Laboratory Last Values WBC 5.6 K/mm3 (4.0-10.0) 07/22/17 06:00 RBC 3.85 M/mm3 (4.00-5.60) L 07/22/17 06:00 Hgb 12.2 GM/dL (11.7-16.9) 07/22/17 06:00 Hct 37.2 % (35.4-49) 07/22/17 06:00 MCV 96.7 fl (80-96) H 07/22/17 06:00 MCH 31.8 pg (25.7-33.7) 07/22/17 06:00 MCHC 32.9 g/dl (32.0-35.9) 07/22/17 06:00 RDW 12.7 % (11.9-15.9) 07/22/17 06:00 Plt Count 243 K/MM3 (134-434) 07/22/17 06:00 MPV 9.7 fl (7.5-11.1) 07/22/17 06:00 Sodium 140 mmol/L (136-145) 07/22/17 06:00 Potassium 4.3 mmol/L (3.5-5.1) 07/22/17 06:00 Chloride 102 mmol/L (98-107) 07/22/17 06:00 Carbon Dioxide 31 mmol/L (21-32) 07/22/17 06:00 Anion Gap 7 (8-16) L 07/22/17 06:00 BUN 10 mg/dL (7-18) 07/22/17 06:00 Creatinine 0.7 mg/dL (0.7-1.3) 07/22/17 06:00 Creat Clearance w eGFR > 60 (>60) 07/22/17 06:00 Random Glucose 82 mg/dL (74-106) 07/22/17 06:00 Calcium 9.0 mg/dL (8.5-10.1) 07/22/17 06:00 Total Bilirubin 0.4 mg/dL (0.2-1.0) 07/22/17 06:00 AST 68 U/L (15-37) H D 07/22/17 06:00 ALT 46 U/L (12-78) D 07/22/17 06:00 Alkaline Phosphatase 91 U/L (45-117) 07/22/17 06:00 Total Protein 7.8 g/dl (6.4-8.2) 07/22/17 06:00 Albumin 3.3 g/dl (3.4-5.0) L 07/22/17 06:00 Urine Color Straw 07/21/17 Unknown Urine Appearance Clear 07/21/17 Unknown Urine pH 6.0 (5.0-8.0) D 07/21/17 Unknown Ur Specific [place] 1.003 (1.001-1.035) 07/21/17 Unknown Urine Protein Negative (NEGATIVE) 07/21/17 Unknown Urine Glucose (UA) Negative (NEGATIVE) 07/21/17 Unknown Urine Ketones Negative (NEGATIVE) 07/21/17 Unknown Urine Blood Negative (NEGATIVE) 07/21/17 Unknown Urine Nitrite Negative (NEGATIVE) 07/21/17 Unknown Urine Bilirubin Negative (<2.0 mg/dL) 07/21/17 Unknown Urine Urobilinogen Negative mg/dL (0.2-1.0) 07/21/17 Unknown Ur Leukocyte Esterase Negative (NEGATIVE) 07/21/17 Unknown A/P Patient AOx3 in no apparent distress no adventitious breath sounds Patient ambulating in the unit + left knee swelling, no joint erythema or joint effusion - chronic OA Plan: fall precautions tylenol PRN leg elevation ambulate patient advise to follow up with PMD upon discharge Continue to monitor
--- NOTE | 2017-07-22 17:59 | EKG ---
Test Reason : Blood Pressure : / mmHG Vent. Rate : 052 BPM Atrial Rate : 052 BPM P-R Int : 144 ms QRS Dur : 090 ms QT Int : 476 ms P-R-T Axes : 061 036 050 degrees QTc Int : 442 ms SINUS BRADYCARDIA WITH SINUS ARRHYTHMIA POSSIBLE LEFT ATRIAL ENLARGEMENT LEFT VENTRICULAR HYPERTROPHY ABNORMAL ECG Confirmed by MD DEVENDRA, NADIA ([id number]) on 07/22/2017 5:58:59 PM Referred By: Confirmed By:NADIA RAMSAY MD
[2017-07-22] MEDS: THIAMINE HCL 100 MG TABLET (FP) PO SCH (22:03)
[2017-07-23] MEDS: METHADONE HCL 40 MG DISPERSABLE TABLET PO SCH (06:40)
[2017-07-23] MEDS: IBUPROFEN 400 MG TABLET (FP) PO PRN (06:41)
[2017-07-23] MEDS: PRENATAL VITAMINS W/ FOLIC ACID TABLET (FP) PO SCH (10:36)
[2017-07-23] MEDS: amLODIPine BESYLATE 5 MG TABLET (FP) PO SCH ×2 (10:36→21:27)
[2017-07-23] MEDS: THIAMINE HCL 100 MG TABLET (FP) PO SCH (21:27)
[2017-07-24] MEDS: METHADONE HCL 40 MG DISPERSABLE TABLET PO SCH (06:40)
[2017-07-24] MEDS: amLODIPine BESYLATE 5 MG TABLET (FP) PO SCH ×2 (10:13→21:44)
[2017-07-24] MEDS: PRENATAL VITAMINS W/ FOLIC ACID TABLET (FP) PO SCH (10:13)
[2017-07-24] MEDS: MELATONIN 5 MG TABLETS PO PRN (21:44)
[2017-07-24] MEDS: THIAMINE HCL 100 MG TABLET (FP) PO SCH (21:45)
[2017-07-24] MEDS: IBUPROFEN 400 MG TABLET (FP) PO PRN (21:45)
[2017-07-25] MEDS: METHADONE HCL 40 MG DISPERSABLE TABLET PO SCH (06:29)
[2017-07-25] MEDS: amLODIPine BESYLATE 5 MG TABLET (FP) PO SCH ×2 (09:48→21:36)
[2017-07-25] MEDS: PRENATAL VITAMINS W/ FOLIC ACID TABLET (FP) PO SCH (09:48)
[2017-07-25] MEDS: IBUPROFEN 400 MG TABLET (FP) PO PRN (09:49)
[2017-07-25] MEDS: THIAMINE HCL 100 MG TABLET (FP) PO SCH (21:36)
[2017-07-25] MEDS: MELATONIN 5 MG TABLETS PO PRN (21:38)
[2017-07-26] MEDS: METHADONE HCL 40 MG DISPERSABLE TABLET PO SCH (06:40)
[2017-07-26] MEDS: amLODIPine BESYLATE 5 MG TABLET (FP) PO SCH ×2 (10:37→21:18)
[2017-07-26] MEDS: PRENATAL VITAMINS W/ FOLIC ACID TABLET (FP) PO SCH (10:37)
[2017-07-26] MEDS: IBUPROFEN 400 MG TABLET (FP) PO PRN ×2 (10:38→21:20)
[2017-07-26] MEDS: MELATONIN 5 MG TABLETS PO PRN (21:18)
[2017-07-26] MEDS: THIAMINE HCL 100 MG TABLET (FP) PO SCH (21:19)
[2017-07-27] MEDS: METHADONE HCL 40 MG DISPERSABLE TABLET PO SCH (06:55)
[2017-07-27] MEDS: amLODIPine BESYLATE 5 MG TABLET (FP) PO SCH ×2 (10:25→21:32)
[2017-07-27] MEDS: PRENATAL VITAMINS W/ FOLIC ACID TABLET (FP) PO SCH (10:25)
[2017-07-27] MEDS: IBUPROFEN 400 MG TABLET (FP) PO PRN (21:32)
[2017-07-27] MEDS: MELATONIN 5 MG TABLETS PO PRN (21:32)
[2017-07-27] MEDS: THIAMINE HCL 100 MG TABLET (FP) PO SCH (21:32)
[2017-07-28] MEDS: METHADONE HCL 40 MG DISPERSABLE TABLET PO SCH (05:48)
[2017-07-28] MEDS: PRENATAL VITAMINS W/ FOLIC ACID TABLET (FP) PO SCH (10:35)
[2017-07-28] MEDS: amLODIPine BESYLATE 5 MG TABLET (FP) PO SCH ×2 (10:35→21:54)
--- NOTE | 2017-07-28 14:34 | PN ---
[facility] Progress Note Note: Patient seen for c/o left leg pain. Denies any recent injuries. States four months ago he hit leg on dresser and went to ER. He was treated and released after one month. States he damaged his tendons. Laboratory Tests 07/21/17 07/22/17 07/22/17 Unknown 06:00 06:00 WBC 5.6 RBC 3.85 L Hgb 12.2 Hct 37.2 MCV 96.7 H MCH 31.8 MCHC 32.9 RDW 12.7 Plt Count 243 MPV 9.7 Sodium 140 Potassium 4.3 Chloride 102 Carbon Dioxide 31 Anion Gap 7 L BUN 10 Creatinine 0.7 Creat Clearance w eGFR > 60 Random Glucose 82 Calcium 9.0 Total Bilirubin 0.4 AST 68 H D ALT 46 D Alkaline Phosphatase 91 Total Protein 7.8 Albumin 3.3 L Urine Color Straw Urine Appearance Clear Urine pH 6.0 D Ur Specific [place] 1.003 Urine Protein Negative Urine Glucose (UA) Negative Urine Ketones Negative Urine Blood Negative Urine Nitrite Negative Urine Bilirubin Negative Urine Urobilinogen Negative Ur Leukocyte Esterase Negative RPR Titer 07/22/17 06:00 WBC RBC Hgb Hct MCV MCH MCHC RDW Plt Count MPV Sodium Potassium Chloride Carbon Dioxide Anion Gap BUN Creatinine Creat Clearance w eGFR Random Glucose Calcium Total Bilirubin AST ALT Alkaline Phosphatase Total Protein Albumin Urine Color Urine Appearance Urine pH Ur Specific [place] Urine Protein Urine Glucose (UA) Urine Ketones Urine Blood Urine Nitrite Urine Bilirubin Urine Urobilinogen Ur Leukocyte Esterase RPR Titer Nonreactive Vital Signs Temperature 97.7 F 07/28/17 07:26 Pulse Rate 69 07/28/17 10:00 Respiratory Rate 18 07/28/17 07:26 Blood Pressure 131/67 07/28/17 10:00 O2 Sat by Pulse Oximetry (%) Obj: Skin warm and dry and intact General/Ext: patient hunched over, ambulates with cane. Ext without edema. In no acute distress Leg pain; Will order Flexeril 10mg HS continue to monitor clinically
[2017-07-28] MEDS: THIAMINE HCL 100 MG TABLET (FP) PO SCH (21:53)
[2017-07-28] MEDS: CYCLOBENZAPRINE HCL 10 MG TABLET (FP) PO SCH (21:53)
[2017-07-29] MEDS: METHADONE HCL 40 MG DISPERSABLE TABLET PO SCH (06:16)
[2017-07-29] MEDS: amLODIPine BESYLATE 5 MG TABLET (FP) PO SCH ×2 (10:29→21:35)
[2017-07-29] MEDS: PRENATAL VITAMINS W/ FOLIC ACID TABLET (FP) PO SCH (10:29)
[2017-07-29] MEDS: IBUPROFEN 400 MG TABLET (FP) PO PRN (21:35)
[2017-07-29] MEDS: CYCLOBENZAPRINE HCL 10 MG TABLET (FP) PO SCH (21:35)
[2017-07-29] MEDS: MELATONIN 5 MG TABLETS PO PRN (21:35)
[2017-07-29] MEDS: THIAMINE HCL 100 MG TABLET (FP) PO SCH (21:35)
[2017-07-30] MEDS: METHADONE HCL 40 MG DISPERSABLE TABLET PO SCH (06:10)
[2017-07-30 06:44] VITALS: BP 142/77; PULSE 82; TEMP 98
[2017-07-30] MEDS: amLODIPine BESYLATE 5 MG TABLET (FP) PO SCH (10:38)
[2017-07-30] MEDS: PRENATAL VITAMINS W/ FOLIC ACID TABLET (FP) PO SCH (10:38)
[2017-07-30] MEDS: IBUPROFEN 400 MG TABLET (FP) PO PRN (10:39)
--- NOTE | 2017-07-30 15:26 | PN ---
Psychiatric Progress Note Vital Signs: Vital Signs Period Temp Pulse Resp BP Sys/San Pulse Ox Last 24 Hr 98.0 F 76-82 18-18 142-161/77-79 Date of Session: 07/30/17 Chief Complaint:: BHS HPI: Patient was admitted to for alcohol and cocaine dependence. ROS: Significant for hypertension, arthritis mostly of left knee, and varicose vein Current Medications: Active Medications Generic Name Dose Route Start Last Admin Trade Name Freq PRN Reason Stop Dose Admin Al Hydroxide/Mg Hydroxide 30 ml 07/21/17 13:56 Mylanta Oral Suspension - PO Q6H PRN DYSPEPSIA Amlodipine Besylate 5 mg 07/21/17 15:05 07/30/17 10:38 Norvasc - PO 5 mg BID FRANKO Administration Cyclobenzaprine HCl 10 mg 07/28/17 22:00 07/29/17 21:35 Flexeril - PO 10 mg HS FRANKO Administration Eucalyptus/Menthol/Phenol/Sorbitol 1 each 07/21/17 13:56 Cepastat Lozenge - MM Q4H PRN SORE THROAT Guaifenesin 10 ml 07/21/17 13:56 Robitussin Dm - PO Q6H PRN COUGH Ibuprofen 400 mg 07/21/17 13:56 07/30/17 10:39 Motrin - PO 400 mg Q6H PRN Administration Pain level 4-6 Lactulose 20 gm 07/22/17 12:56 Cephulac (Oral Use) PO QID PRN CONSTIPATION Loperamide HCl 4 mg 07/21/17 13:56 Imodium - PO Q6H PRN DIARRHEA Magnesium Citrate 300 ml 07/21/17 13:56 Citroma - PO Q48H PRN CONSTIPATION Magnesium Hydroxide 30 ml 07/21/17 13:56 Milk Of Magnesia - PO DAILY PRN CONSTIPATION Melatonin 5 mg 07/21/17 22:00 07/29/17 21:35 Melatonin PO 5 mg HS PRN Administration INSOMNIA Methadone HCl 40 mg 07/29/17 06:00 07/30/17 06:10 Dolophine - PO 08/05/17 05:59 40 mg DAILY@0600 FRANKO Administration Multivit/Folic Acid/Iron 1 tab 07/22/17 10:00 07/30/17 10:38 Vitamins (Sjr) - PO 1 tab DAILY FRANKO Administration Pseudoephedrine/Triprolidine 1 combo 07/21/17 13:56 Actifed - PO TID PRN NASAL CONGESTION Thiamine HCl 100 mg 07/21/17 22:00 07/29/17 21:35 Vitamin B1 - PO 100 mg HS FRANKO Administration Medication(s) Change(s): No. Current Side Effect: No Lab tests ordered: No Lab tests reviewed: Yes Provider note:: Patient will be given an early discharge on 07/30/17. Pt. has met his treatment goals and will continue to address his issues at the [facility] methadone outpatient program. Patient is able to identify behaviors which contribute to relapse and has developed skills he can utilize to maintain recovery. Pt. is stable for discharge. Total face to face time:: 35 Mental Status Exam - Mental Status Exam Alert and Oriented to: Time, Place, Person Cognitive Function: Good Patient Appearance: Well Groomed Mood: Hopeful Affect: Mood Congruent Patient Behavior: Appropriate, Cooperative Speech Pattern: Clear, Appropriate Voice Loudness: Normal Thought Process: Intact, Goal Oriented Thought Disorder: Not Present Hallucinations: Denies Suicidal Ideation: Denies Homicidal Ideation: Denies Insight/Judgement: Good Sleep: Well Appetite: Good Muscle strength/Tone: Normal Gait/Station: Other (Patient uses a cane to ambulate.) Psychiatric Treatment Plan - Problem List (6) Hypertension Qualifiers: Hypertension type: essential hypertension Qualified Code(s): I10 - Essential (primary) hypertension
== END 2017-07-30 15:30 | disposition home or self-care (01) | DRG 895 ==
LOC: YASAS 10:36 → Y5N 14:45
PROVIDERS: ADMIT Psychiatry & Neurology Psychiatry; ATTEND Psychiatry & Neurology Psychiatry
PROC: HZ42ZZZ Group Counseling for Substance Abuse Treatment, Cognitive-Behavioral (ICD-10-PCS; principal; 2017-07-21)
DX: F10.20 Alcohol dependence, uncomplicated (principal); F11.20 Opioid dependence, uncomplicated; F14.20 Cocaine dependence, uncomplicated; F19.280 Other psychoactive substance dependence with psychoactive substance-induced anxiety disorder; E72.20 Disorder of urea cycle metabolism, unspecified; I10 Essential (primary) hypertension; R22.42 Localized swelling, mass and lump, left lower limb; M79.605 Pain in left leg; R26.2 Difficulty in walking, not elsewhere classified; Z99.89 Dependence on other enabling machines and devices
CPT/HCPCS: 36415; 80053; 81003; 85027; 86593; 93005; 93010

== ENCOUNTER 2018-06-19 11:58 | Inpatient (IN) | payer OTHER ==
[2018-06-19 12:25] VITALS: BMI 29.2
--- NOTE | 2018-06-19 14:25 | HP ---
COWS - Scale Resting Pulse: 0= SD 80 or Below Sweatin= Chills/Flushing Restless Observation: 3= Extraneous Movement Pupil Size: 1= Pupils >than Normal Bone or Joint Aches: 2= Severe Diffuse Aches Runny Nose/ Eye Tearin= Runny Nose/Eyes GI Upset > 30mins: 2= Nausea/Diarrhea Tremor Observation: 2= Slight Tremor Visible Yawning Observation: 2= >3x During Session Anxiety or Irritability: 2=Irritable/Anxious Goose Flesh Skin: 0=Smooth Skin COWS Score: 17 CIWA Score - Admission Criteria OASAS Guidelines: Admission for Medically Managed Detox: Requires at least one of the followin. CIWA greater than 12 2. Seizures within the past 24 hours 3. Delirium tremens within the past 24 hours 4. Hallucinations within the past 24 hours 5. Acute intervention needed for co occurring medical disorder 6. Acute intervention needed for co occurring psychiatric disorder 7. Severe withdrawal that cannot be handled at a lower level of care (continued vomiting, continued diarrhea, abnormal vital signs) requiring intravenous medication and/or fluids 8. Admission ROS S - HPI Chief Complaint: i need help to stop using heroin,and street methadone Allergies/Adverse Reactions: Allergies Allergy/AdvReac Type Severity Reaction Status Date / Time No Known Allergies Allergy Verified 06/19/18 12:14 History of Present Illness: this 77 years old male with heroin dependence and street methadone,on mmtp 40 mgs/day,last medicated 05/07/18 10 mgs medicated on 05/07/18 patient was discharged from methadone program has been using heroin and street methadone since then had arthritis both knees never been in detox before Exam Limitations: No Limitations - Ebola screening Have you traveled outside of the country in the last 21 days: No Have you had contact with anyone from an Ebola affected area: No Do you have a fever: No - Review of Systems Constitutional: Chills, Loss of Appetite, Malaise, Night Sweats, Changes in sleep, Weakness EENT: reports: Tearing, Nose Congestion Respiratory: reports: No Symptoms reported Cardiac: reports: No Symptoms Reported GI: reports: Nausea, Poor Appetite, Abdominal cramping : reports: No Symptoms Reported Musculoskeletal: reports: Back Pain, Joint Pain, Muscle Pain Integumentary: reports: Dryness Neuro: reports: Tremors Endocrine: reports: No Symptoms Reported Hematology: reports: No Symptoms Reported Psychiatric: reports: No Sypmtoms Reported, Judgement Intact, Mood/Affect Appropiate Other Systems: Reviewed and Negative Patient History - Patient Medical History Hx Anemia: No Hx Asthma: No Hx Chronic Obstructive Pulmonary Disease (COPD): No Hx Cancer: No Hx Cardiac Disorders: No Hx Congestive Heart Failure: No Hx Hypertension: Yes (non compliance) Hx Hypercholesterolemia: No Hx Pacemaker: No HX Cerebrovascular Accident: No Hx Seizures: No Hx Dementia: No Hx Diabetes: No Hx Gastrointestinal Disorders: No Hx Liver Disease: No Hx Genitourinary Disorders: No Hx Sexually Transmitted Disorders: No Hx Renal Disease (ESRD): No Hx Thyroid Disease: No Hx Human Immunodeficiency Virus (HIV): No (NEGATIVE HX [id number]) Hx Hepatitis C: No Hx Depression: No Hx Suicide Attempt: No Hx Bipolar Disorder: No Hx Schizophrenia: No Other Medical History: no suicidal,no homicidal - Patient Surgical History Past Surgical History: No Hx Neurologic Surgery: No Hx Cataract Extraction: No Hx Cardiac Surgery: No Hx Lung Surgery: No Hx Breast Surgery: No Hx Breast Biopsy: No Hx Abdominal Surgery: No Hx Appendectomy: No Hx Cholecystectomy: No Hx Genitourinary Surgery: No Hx Section: No Hx Orthopedic Surgery: No Anesthesia Reaction: No - PPD History Previous Implant?: Yes Documented Results: Negative w/proof Implanted On Prior R Admission?: Yes Date: 07/23/17 Results: 0 mm PPD to be Administered?: No - Smoking Cessation Smoking history: Never smoked Have you smoked in the past 12 months: No Hx Chewing Tobacco Use: No - Substance & Tx. History Hx Alcohol Use: No Hx Substance Use: Yes Substance Use Type: Heroin, Opiates Hx Substance Use Treatment: No - Substances abused Heroin Substance route: Inhalation Frequency: Daily Amount used: 1 bag Age of first use: 64 Date of last use: 06/18/18 Non-Rx Methadone Substance route: Oral Frequency: 3-6 times per week Amount used: 20 mgs Age of first use: 64 Date of last use: 06/17/18 Family Disease History - Family Disease History Family Disease History: Other: Grandparent (GM RECENTLY AT 91), Father ( ), Mother () Admission Physical Exam BHS - Vital Signs Vital Signs: Vital Signs - 24 hr 06/19/18 06/19/18 12:14 13:29 Temperature 98 F 98 F Pulse Rate 53 L 53 L Respiratory 18 18 Rate Blood Pressure 144/83 144/83 - Physical General Appearance: Yes: Moderate Distress, Tremorous, Irritable, Sweating, Anxious HEENTM: Yes: Normal ENT Inspection, ERICA, Pharynx Normal Respiratory: Yes: Lungs Clear, Normal Breath Sounds, No Respiratory Distress Neck: Yes: Within Normal Limits, Supple, Trachea in good position Breast: Yes: Within Normal Limits Cardiology: Yes: Within Normal Limits, Regular Rhythm, Regular Rate, S1, S2 Abdominal: Yes: Within Normal Limits, Normal Bowel Sounds, Non Tender, Flat, Soft Genitourinary: Yes: Within Normal Limits Back: Yes: Muscle Spasm Musculoskeletal: Yes: full range of Motion, Back pain, Muscle Pain Extremities: Yes: Tremors Neurological: Yes: Within Normal Limits, sewer tapper II-XII NML intact, Fully Oriented, Alert, Motor Strength 5/5 Integumentary: Yes: Dry Lymphatic: Yes: Within Normal Limits - Diagnostic (1) Opioid dependence with withdrawal Status: Acute (2) Methadone use disorder, mild, abuse Status: Chronic (3) Dehydration Status: Acute (4) Weight loss Status: Acute (5) Essential hypertension Status: Acute (6) Arthritis of both knees Status: Chronic (7) Varicose veins of both legs with edema Status: Acute Cleared for Admission [facility] - Detox or Rehab [facility] Level of Care: Medically Managed Detox Regimen/Protocol: Methadone Breathalyzer - Breathalyzer Breathalyzer: 0 Urine Drug Screen - Test Device Lot number: [id number] Expiration date: 01/17/20 - Control Is test valid?: Yes - Results Drug screen NEGATIVE: No Urine drug screen results: FEN-Fentanyl, MOP-Opiates, MTD-Methadone Inpatient Rehab Admission - Rehab Decision to Admit Inpatient rehab admission?: No
[2018-06-19] MEDS ORDERED: MENTHOL/PHENOL 1 EACH UD MM PRN (14:38)
[2018-06-19] MEDS ORDERED: METHOCARBAMOL 500 MG TABLET PO PRN (14:38)
[2018-06-19] MEDS ORDERED: cloNIDine HCL 0.1 MG TABLET PO PRN (14:38)
[2018-06-19] MEDS ORDERED: BISMUTH SUBSALICYLATE 262 MG/15 ML BTL PO PRN (14:38)
[2018-06-19] MEDS ORDERED: ACETAMINOPHEN 325 MG TABLET (FP) PO PRN ×2 (14:38)
[2018-06-19] MEDS ORDERED: MAGNESIUM CITRATE 300 ML BOTTLE PO PRN (14:38)
[2018-06-19] MEDS ORDERED: hydrOXYzine PAMOATE 25 MG CAPSULE (FP) PO PRN (14:38)
[2018-06-19] MEDS ORDERED: MAGNESIUM HYDROX 2400MG/30ML ORAL SUSPENSION 30 ML CUP PO PRN (14:38)
[2018-06-19] MEDS ORDERED: IBUPROFEN 400 MG TABLET (FP) PO PRN (14:38)
[2018-06-19] MEDS ORDERED: MELATONIN 5 MG TABLETS PO PRN (14:38)
[2018-06-19] MEDS ORDERED: MAG HYDROX/AL HYDROX/SIMETH 30 ML UNIT-DOSE CUP PO PRN (14:38)
[2018-06-19] MEDS ORDERED: diazePAM 5 MG TABLET PO PRN (14:42)
[2018-06-19] MEDS ORDERED: METHADONE HCL 10 MG TABLET (FOR DETOX USE ONLY) PO ONE ×2 (15:30→23:00)
[2018-06-19] MEDS: amLODIPine BESYLATE 5 MG TABLET (FP) PO SCH (15:50)
[2018-06-19] MEDS ORDERED: THIAMINE HCL 100 MG TABLET (FP) PO SCH (22:00)
[2018-06-20] MEDS: amLODIPine BESYLATE 5 MG TABLET (FP) PO SCH (09:44)
[2018-06-20 09:51] VITALS: BP 157/89; PULSE 55; TEMP 97.9
[2018-06-20] MEDS ORDERED: METHADONE HCL 5 MG TABLET (FOR DETOX USE ONLY) PO ONE (10:00)
[2018-06-20] MEDS ORDERED: PRENATAL VITAMINS W/ FOLIC ACID TABLET (FP) PO SCH (10:00)
[2018-06-20 10:25] LABS: HEMATOCRIT 41.6 % (35.4-49); HEMOGLOBIN 13.7 GM/dL (11.7-16.9); MCH 31.2 pg (25.7-33.7); MCHC 32.9 g/dl (32.0-35.9); MEAN CELL VOLUME 94.7 fl (80-96); MEAN PLT VOLUME 9.8 fl (7.5-11.1); PLATELET COUNT 262 K/MM3 (134-434); RBC 4.39 M/mm3 (4.00-5.60); RDW 13.6 % (11.9-15.9); WHITE BLOOD COUNT 8.1 K/mm3 (4.0-10.0)
[2018-06-20 10:36] LABS: URINE APPEARANCE CLOUDY; URINE BILIRUBIN NEGATIVE (NEGATIVE); URINE COLOR YELLOW; URINE GLUCOSE (UA) NEGATIVE (NEGATIVE); URINE KETONE TRACE (NEGATIVE); URINE LEUK ESTERASE NEGATIVE (NEGATIVE); URINE NITRITE NEGATIVE (NEGATIVE); URINE PROTEIN NEGATIVE (NEGATIVE)
[2018-06-20 11:53] LABS: ALBUMIN 3.6 g/dl (3.4-5.0); ALK PHOS 81 U/L (45-117); ANION GAP 8 MMOL/L (8-16); BILIRUBIN,TOTAL 0.3 mg/dL (0.2-1); BLOOD UREA NITROGEN 21 mg/dL (7-18); CALCIUM 8.9 mg/dL (8.5-10.1); CHLORIDE 103 mmol/L (98-107); CO2 31 mmol/L (21-32); CREATININE 0.8 mg/dL (0.55-1.3); GLUCOSE,RANDOM 129 mg/dL (74-106); POTASSIUM 4.6 mmol/L (3.5-5.1); SGOT/AST 21 U/L (15-37); SGPT/ALT 21 U/L (13-61); SODIUM 141 mmol/L (136-145); TOT PROT 7.8 g/dl (6.4-8.2)
--- NOTE | 2018-06-20 13:08 | DS ---
[facility] Detox Discharge Summary Admission Date: 06/19/18 Discharge Date: 06/20/18 - History Present History: Opioid Dependence Additional Comments: Pt left AMA, states "my son is coming to pick me up now to go and do something very important". Pt reports that his son will take him to the [facility] on friday for an outpatient chemical dependence program. Pt can't recall the name or the address of the program at this time. Pt advised to complete his detox protocol but was still adamant. Pt is AOx3, in no respiratory distress. Amlodipine 5mg po daily prescription not given, pt states he has enough refills home. Pt is encouraged to follow-up with his PMD. Pt verbalized understanding of instructions given. Pertinent Past History: H/o HTN, arthritis of b/l knee, street methadone abuse, and heroine abuse. - Physical Exam Results Vital Signs: Vital Signs Temperature 97.9 F 06/20/18 09:50 Pulse Rate 55 L 06/20/18 09:50 Respiratory Rate 18 06/20/18 09:50 Blood Pressure 157/89 06/20/18 09:50 O2 Sat by Pulse Oximetry (%) Laboratory Last Values WBC 8.1 K/mm3 (4.0-10.0) 06/20/18 08:00 RBC 4.39 M/mm3 (4.00-5.60) 06/20/18 08:00 Hgb 13.7 GM/dL (11.7-16.9) 06/20/18 08:00 Hct 41.6 % (35.4-49) 06/20/18 08:00 MCV 94.7 fl (80-96) 06/20/18 08:00 MCH 31.2 pg (25.7-33.7) 06/20/18 08:00 MCHC 32.9 g/dl (32.0-35.9) 06/20/18 08:00 RDW 13.6 % (11.9-15.9) 06/20/18 08:00 Plt Count 262 K/MM3 (134-434) 06/20/18 08:00 MPV 9.8 fl (7.5-11.1) 06/20/18 08:00 Sodium 141 mmol/L (136-145) 06/20/18 07:45 Potassium 4.6 mmol/L (3.5-5.1) 06/20/18 07:45 Chloride 103 mmol/L (98-107) 06/20/18 07:45 Carbon Dioxide 31 mmol/L (21-32) 06/20/18 07:45 Anion Gap 8 MMOL/L (8-16) 06/20/18 07:45 BUN 21 mg/dL (7-18) H 06/20/18 07:45 Creatinine 0.8 mg/dL (0.55-1.3) 06/20/18 07:45 Creat Clearance w eGFR 94.24 (>60) 06/20/18 07:45 Random Glucose 129 mg/dL (74-106) H 06/20/18 07:45 Calcium 8.9 mg/dL (8.5-10.1) 06/20/18 07:45 Total Bilirubin 0.3 mg/dL (0.2-1) 06/20/18 07:45 AST 21 U/L (15-37) 06/20/18 07:45 ALT 21 U/L (13-61) 06/20/18 07:45 Alkaline Phosphatase 81 U/L (45-117) 06/20/18 07:45 Total Protein 7.8 g/dl (6.4-8.2) 06/20/18 07:45 Albumin 3.6 g/dl (3.4-5.0) 06/20/18 07:45 Urine Color Yellow 06/20/18 07:45 Urine Appearance Cloudy 06/20/18 07:45 Urine pH 6.0 (5.0-8.0) 06/20/18 07:45 Ur Specific [place] 1.022 (1.010-1.035) 06/20/18 07:45 Urine Protein Negative (NEGATIVE) 06/20/18 07:45 Urine Glucose (UA) Negative (NEGATIVE) 06/20/18 07:45 Urine Ketones Trace (NEGATIVE) H 06/20/18 07:45 Urine Blood Negative (NEGATIVE) 06/20/18 07:45 Urine Nitrite Negative (NEGATIVE) 06/20/18 07:45 Urine Bilirubin Negative (NEGATIVE) 06/20/18 07:45 Urine Urobilinogen 1.0 mg/dL (0.2-1.0) 06/20/18 07:45 Ur Leukocyte Esterase Negative (NEGATIVE) 06/20/18 07:45 Labs noted. Pertinent Admission Physical Exam Findings: Withdrawal symptoms. - Treatment Hospital Course: Detox Protocol Followed - Medication Discharge Medications: Ambulatory Orders Amlodipine Besylate [Norvasc -] 5 mg PO DAILY #30 tablet 07/30/17 - Diagnosis (1) Arthritis of both knees Current Visit: Yes Status: Chronic (2) Methadone use disorder, mild, abuse Current Visit: Yes Status: Chronic (3) Opioid dependence with withdrawal Current Visit: Yes Status: Acute (4) Alcohol dependence Current Visit: No Status: Chronic (5) Cocaine dependence, uncomplicated Current Visit: No Status: Acute (6) Hypertension Current Visit: No Status: Chronic Qualifiers: Hypertension type: essential hypertension Qualified Code(s): I10 - Essential (primary) hypertension - AMA Did Patient Leave Against Medical Advice: Yes
--- NOTE | 2018-06-20 13:35 | PN ---
BHS COWS - Scale Resting Pulse: 0= ME 80 or Below Sweatin= Chills/Flushing Restless Observation: 1= Difficult to Sit Still Pupil Size: 0= Normal to Room Light Bone or Joint Aches: 4=Acute Joint/Muscle Pain Runny Nose/ Eye Tearin= None GI Upset > 30mins: 0= None Tremor Observation of Outstretched Hands: 1= Tremor [place], Not Seen Yawning Observation: 1= 1-2x During Session Anxiety or Irritability: 2=Irritable/Anxious Goose Flesh Skin: 0=Smooth Skin COWS Score: 10 S Progress Note (SOAP) Subjective: c/o sweats, headache, and muscle pain. Objective: 06/20/18 13:32 Vital Signs 06/20/18 06/20/18 06:06 09:50 Temperature 96.6 F L 97.9 F Pulse Rate 57 L 55 L Respiratory 18 18 Rate Blood Pressure 135/64 157/89 Assessment: AOX3, in no respiratory distress Ambulates in the unit with a wheelchair. Plan: continue detox increase fluids continue to monitor for withdrawal symptoms.
[2018-06-21] MEDS ORDERED: METHADONE HCL 10 MG TABLET (FOR DETOX USE ONLY) PO ONE (10:00)
[2018-06-22] MEDS ORDERED: METHADONE HCL 5 MG TABLET (FOR DETOX USE ONLY) PO ONE (06:00)
== END 2018-06-20 13:25 | disposition left against medical advice (07) | DRG 894 ==
LOC: YASAS 11:58 → Y6N 15:11
PROVIDERS: ADMIT Surgery; ATTEND Surgery
PROC: HZ2ZZZZ Detoxification Services for Substance Abuse Treatment (ICD-10-PCS; principal; 2018-06-19)
DX: F11.23 Opioid dependence with withdrawal (principal); F14.20 Cocaine dependence, uncomplicated; F10.20 Alcohol dependence, uncomplicated; I10 Essential (primary) hypertension; I83.893 Varicose veins of bilateral lower extremities with other complications; E86.0 Dehydration; M17.0 Bilateral primary osteoarthritis of knee; R63.4 Abnormal weight loss; Z68.29 Body mass index [BMI] 29.0-29.9, adult
CPT/HCPCS: 36415; 80053; 81003; 85027; 86593; J0735

== ENCOUNTER 2019-10-14 11:21 | Inpatient (IN) | payer OTHER ==
--- NOTE | 2019-10-14 12:20 | BHS.RME ---
Substance Use & Tx History - Substance Use History Alcohol Substance amount: 2-3 beers Frequency of use: Daily Substance route: Oral Date of Last Use: 10/13/19 Cocaine- Powder Substance amount: $40 Frequency of use: Less than 3 times per week Substance route: Inhalation (ex: sniffing or snorting) Date of Last Use: 10/13/19 CIWA Nausea/Vomitin-No Nausea/No Vomiting Muscle Tremors: 1-None Visible, but [place] Anxiety: 3 Agitation: 3 Paroxysmal Sweats: 2 Orientation: 1-Uncertain about Date Tacttile Disturbances: 1-Very Mild Itch/Numbness Auditory Disturbances: 1-Very Mild Visual Disturbances: 0-None Headache: 0-None Present CIWA-Ar Total Score: 12
[2019-10-14 13:53] VITALS: BMI 29.9
--- NOTE | 2019-10-14 14:13 | HP ---
CIWA Score Nausea/Vomitin-No Nausea/No Vomiting Muscle Tremors: 1-None Visible, but [place] Anxiety: 3 Agitation: 3 Paroxysmal Sweats: 2 Orientation: 1-Uncertain about Date Tacttile Disturbances: 1-Very Mild Itch/Numbness Auditory Disturbances: 1-Very Mild Visual Disturbances: 0-None Headache: 0-None Present CIWA-Ar Total Score: 12 - Admission Criteria OASAS Guidelines: Admission for Medically Managed Detox: Requires at least one of the followin. CIWA greater than 12 2. Seizures within the past 24 hours 3. Delirium tremens within the past 24 hours 4. Hallucinations within the past 24 hours 5. Acute intervention needed for co occurring medical disorder 6. Acute intervention needed for co occurring psychiatric disorder 7. Severe withdrawal that cannot be handled at a lower level of care (continued vomiting, continued diarrhea, abnormal vital signs) requiring intravenous medication and/or fluids 8. Admitting History and Physical - Primary Care Physician PCP: Dr. Babin - Admission Chief Complaint: Detox History of Present Illness: Patient is a 78 y.o. M PMHx for HTN presenting to [facility] for substance abuse and detox. Patient was examined in the room and is in no acute distress. 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 Pt. endorses cocaine use 40$ a day snorting. - Substance Use History Alcohol Substance amount: 2-3 beers Frequency of use: Daily Substance route: Oral Date of Last Use: 10/13/19 Cocaine- Powder Substance amount: $40 Frequency of use: Less than 3 times per week Substance route: Inhalation (ex: sniffing or snorting) Date of Last Use: 10/13/19 History Source: Patient Limitations to Obtaining History: No Limitations - Past Medical History Cardiovascular: Yes: HTN Pulmonary: No: Pneumonia Gastrointestinal: No: Constipation, GI Bleed, Pancreatitis Hepatobiliary: No: Hepatitis A, Hepatitis B, Hepatitis C Psych: Yes: Depression - Past Surgical History Past Surgical History: Yes: None - Smoking History Smoking history: Never smoked Have you smoked in the past 12 months: No - Alcohol/Substance Use Hx Alcohol Use: No Number of Drinks Daily: 3 History of Substance Use: reports: Cocaine - Social History Usual Living Arrangement: Yes: Alone ADL: Independent History of Recent Travel: No Admission ROS [facility] - HPI Allergies/Adverse Reactions: Allergies Allergy/AdvReac Type Severity Reaction Status Date / Time No Known Allergies Allergy Verified 10/14/19 13:46 Exam Limitations: No Limitations - Ebola screening Have you traveled outside of the country in the last 21 days: No Have you had contact with anyone from an Ebola affected area: No Do you have a fever: No - Review of Systems Constitutional: No Symptoms Reported Respiratory: denies: Cough, Shortness of Breath Cardiac: denies: Chest Pain, Lightheadedness GI: denies: Constipated, Diarrhea, Nausea, Vomiting Neuro: reports: Numbness (B/L LE), Dizziness. denies: Headache Psychiatric: reports: Judgement Intact, Mood/Affect Appropiate, Orientated x3, Depressed Patient History - Patient Medical History Hx Anemia: No Hx Asthma: No Hx Chronic Obstructive Pulmonary Disease (COPD): No Hx Cancer: No Hx Cardiac Disorders: No Hx Congestive Heart Failure: No Hx Hypertension: No Hx Hypercholesterolemia: No Hx Pacemaker: No HX Cerebrovascular Accident: No Hx Seizures: No Hx Dementia: No Hx Diabetes: No Hx Gastrointestinal Disorders: No Hx Liver Disease: No Hx Genitourinary Disorders: No Hx Sexually Transmitted Disorders: No Hx Renal Disease (ESRD): No Hx Thyroid Disease: No Hx Human Immunodeficiency Virus (HIV): No (NEGATIVE HX [id number]) Hx Hepatitis C: No Hx Depression: Yes Hx Suicide Attempt: No Hx Bipolar Disorder: No Hx Schizophrenia: No - Patient Surgical History Past Surgical History: No Hx Neurologic Surgery: No Hx Cataract Extraction: No Hx Cardiac Surgery: No Hx Lung Surgery: No Hx Breast Surgery: No Hx Breast Biopsy: No Hx Abdominal Surgery: No Hx Appendectomy: No Hx Cholecystectomy: No Hx Genitourinary Surgery: No Hx Section: No Hx Orthopedic Surgery: No Anesthesia Reaction: No - PPD History Previous Implant?: Yes Documented Results: Negative w/proof Implanted On Prior [facility] Admission?: Yes Date: 07/23/17 Results: 0 mm - Reproductive History Patient : (n/a) - Smoking Cessation Smoking history: Never smoked Have you smoked in the past 12 months: No Cigars Per Day: 0 Hx Chewing Tobacco Use: No Initiated information on smoking cessation: No - Substances abused Alcohol Substance route: Oral Frequency: Daily Amount used: (3)24oz cans of beer Age of first use: 65 Date of last use: 10/14/19 Cocaine Substance route: Inhalation Frequency: 3-6 times per week Amount used: 1 gram Age of first use: 64 Date of last use: 10/13/19 Admission Physical Exam BHS - Vital Signs Vital Signs: Vital Signs - 24 hr 10/14/19 13:47 Temperature 96.3 F L Pulse Rate 75 Respiratory 18 Rate Blood Pressure 159/84 - Physical General Appearance: Yes: Within Normal Limits Respiratory: Yes: Within Normal Limits, Lungs Clear, Normal Breath Sounds, No Respiratory Distress, No Accessory Muscle Use Cardiology: Yes: Regular Rhythm, Regular Rate Abdominal: Yes: Normal Bowel Sounds, Non Tender, Flat, Soft Extremities: Yes: Swelling (1+) Neurological: Yes: Fully Oriented, Alert, Normal Mood/Affect, Normal Response Integumentary: Yes: Normal Color, Pitting Edema (1+) - Diagnostic (1) Cocaine dependence Current Visit: No Status: Acute (2) Cocaine dependence, uncomplicated Current Visit: No Status: Acute (3) Essential hypertension Current Visit: No Status: Acute (4) Leg pain Current Visit: No Status: Acute Qualifiers: Laterality: left Qualified Code(s): M79.605 - Pain in left leg (5) Substance-induced anxiety disorder Current Visit: No Status: Acute (6) Varicose veins of both legs with edema Current Visit: No Status: Acute (7) Alcohol dependence Current Visit: No Status: Chronic (8) Arthritis of both knees Current Visit: No Status: Chronic (9) Hypertension Current Visit: No Status: Chronic Qualifiers: Hypertension type: essential hypertension Qualified Code(s): I10 - Essential (primary) hypertension (10) Methadone maintenance therapy patient Current Visit: No Status: Chronic Comment: 40 mg (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, mild, abuse Current Visit: No Status: Chronic (12) Swelling of left knee joint Current Visit: No Status: Chronic (13) Varicose vein of leg Current Visit: No Status: Chronic Breathalyzer - Breathalyzer Breathalyzer: 0 Vital Signs - Vital Signs Vital signs refused: No Temperature: 96.3 F Pulse Rate: 75 Respiratory Rate: 18 Blood Pressure: 159/84 - Height Height: 1.65 m - Weight Weight: 81.647 kg - BMI Body Mass Index (BMI): 29.9 Urine Drug Screen - Test Device Lot number: [id number] Expiration date: 05/25/21 - Control Is test valid?: Yes - Results Drug screen NEGATIVE: No Urine drug screen results: MET-Methamphetamine, MTD-Methadone Inpatient Rehab Admission - Rehab Decision to Admit Inpatient rehab admission?: No
[2019-10-14] MEDS ORDERED: MENTHOL/PHENOL 1 EACH UD MM PRN (14:23)
[2019-10-14] MEDS ORDERED: NICOTINE POLACRILEX 2 MG GUM BUC PRN (14:23)
[2019-10-14] MEDS ORDERED: BISMUTH SUBSALICYLATE 524 MG/30 ML UD PO PRN (14:23)
[2019-10-14] MEDS ORDERED: METHOCARBAMOL 500 MG TABLET PO PRN (14:23)
[2019-10-14] MEDS ORDERED: MAGNESIUM HYDROX 2400MG/30ML ORAL SUSPENSION 30 ML CUP PO PRN (14:23)
[2019-10-14] MEDS ORDERED: MAG HYDROX/AL HYDROX/SIMETH 30 ML UNIT-DOSE CUP PO PRN (14:23)
[2019-10-14] MEDS ORDERED: IBUPROFEN 400 MG TABLET (FP) PO PRN (14:23)
[2019-10-14] MEDS ORDERED: ACETAMINOPHEN 325 MG TABLET (FP) PO PRN ×2 (14:23)
[2019-10-14] MEDS ORDERED: MAGNESIUM CITRATE 300 ML BOTTLE PO PRN (14:23)
[2019-10-14] MEDS ORDERED: chlordiazePOXIDE HCL 10 MG CAPSULE PO PRN (14:23)
[2019-10-14] MEDS ORDERED: ONDANSETRON *ODT* 4 MG TABLET SL ONE (15:00)
--- NOTE | 2019-10-14 15:21 | CONSULT ---
[facility] Psychiatric Consult - Data Date of interview: 10/14/19 Admission source: [facility] Identifying data: Patient is a 78 year but gambian male, father of one, domiciled, and is supported with senior living benefits. This is one of multiple admissions for patient. Patient admitted to for alcohol and cocaine dependence. Substance Abuse History: Smoking Cessation. Smoking history: Never smoked. Have you smoked in the past 12 months: No. Cigars Per Day: 0. Hx Chewing Tobacco Use: No. Initiated information on smoking cessation: No. - Substances abused. Alcohol. Substance route: Oral. Frequency: Daily. Amount used: ( 3)24oz cans of beer. Age of first use: 65. Date of last use: 10/14/19. Cocaine. Substance route: Inhalation. Frequency: 3-6 times per week. Amount used: 1 gram. Age of first use: 64. Date of last use: 10/13/19 Medical History: HTN, Pneumonia, Constipation, GI Bleed, Pancreatitis, Hepatitis A, Hepatitis B, Hepatitis C Psychiatric History: Patient denies history of psychiatric hospitalization, suicide attempt, and outpatient psychiatric care. Mr. Mosqueda reports starting new psychotropic medications last month after receiving treatment in a rehab located in [place], [place]. Diagnosis of Depression. Medications summary reviewed and noted that patient is prescribed Prozac 10mg daily + remeron 15mg HS + Seroquel 100mg daily. Medications confirmed by resident Elsa. Mr. Mosqueda reports medication compliance. At present patient reports stable mood. Physical/Sexual Abuse/Trauma History: denies. Mental Status Exam - Mental Status Exam Alert and Oriented to: Time, Place, Person Cognitive Function: Good Patient Appearance: Well Groomed Mood: Hopeful Affect: Appropriate Patient Behavior: Cooperative Speech Pattern: Appropriate Voice Loudness: Normal Thought Process: Goal Oriented Hallucinations: Denies Suicidal Ideation: Denies Homicidal Ideation: Denies Insight/Judgement: Poor Sleep: Fair Muscle strength/Tone: Normal Gait/Station: Other (Ambulates with a rolling walker.) Psychiatric Findings - Problem List ([place] 1, 2,3) (1) Cocaine dependence Status: Acute (2) Alcohol dependence Status: Chronic (3) Methadone maintenance therapy patient Status: Chronic Comment: 40 mg (4) Depressive disorder Status: Chronic - Initial Treatment Plan Initial Treatment Plan: Psychoeducation provided. Detoxification in progress. Will Continue Prozac 10mg + Mirtazapine 15mg HS + Seroquel 100mg daily. Benefits and side effects discussed. Verbal consent given.
[2019-10-14] MEDS: hydrOXYzine PAMOATE 25 MG CAPSULE (FP) PO SCH ×2 (17:39→21:40)
[2019-10-14 18:07] LABS: HEMATOCRIT 38.3 % (35.4-49); HEMOGLOBIN 12.7 GM/dL (11.7-16.9); MCH 30.6 pg (25.7-33.7); MCHC 33.1 g/dl (32.0-35.9); MEAN CELL VOLUME 92.6 fl (80-96); MEAN PLT VOLUME 10.5 fl (7.5-11.1); PLATELET COUNT 224 K/MM3 (134-434); RBC 4.13 M/mm3 (4.00-5.60); RDW 13.1 % (11.9-15.9); WHITE BLOOD COUNT 7.8 K/mm3 (4.0-10.0)
[2019-10-14 18:17] LABS: ALBUMIN 3.5 g/dl (3.4-5.0); BILIRUBIN,TOTAL 0.4 mg/dL (0.2-1); BLOOD UREA NITROGEN 12.1 mg/dL (7-18); CREATININE 0.9 mg/dL (0.55-1.3); POTASSIUM 4.3 mmol/L (3.5-5.1); TOT PROT 7.8 g/dl (6.4-8.2)
[2019-10-14] MEDS: MELATONIN 5 MG TABLETS PO SCH (21:40)
[2019-10-14] MEDS: MIRTAZAPINE 15 MG TABLET (FP) PO SCH (21:40)
[2019-10-14] MEDS: chlordiazePOXIDE HCL 25 MG CAPSULE PO SCH (21:40)
[2019-10-14] MEDS: THIAMINE HCL 100 MG TABLET (FP) PO SCH (21:40)
[2019-10-15] MEDS ORDERED: METHADONE HCL 10 MG TABLET ONE (05:34)
[2019-10-15] MEDS ORDERED: METHADONE HCL 40 MG DISPERSABLE TABLET ONE (05:35)
[2019-10-15] MEDS: METHADONE 40 MG, METHADONE 10 MG PO SCH (06:18)
[2019-10-15] MEDS: hydrOXYzine PAMOATE 25 MG CAPSULE (FP) PO SCH ×5 (06:19→22:55)
[2019-10-15] MEDS: chlordiazePOXIDE HCL 25 MG CAPSULE PO SCH ×3 (06:19→22:53)
--- NOTE | 2019-10-15 09:13 | PN ---
Teaching Attending Note Name of Resident: Rocky Hunter ATTENDING PHYSICIAN STATEMENT I saw and evaluated the patient. I reviewed the resident's note and discussed the case with the resident. I agree with the resident's findings and plan as documented. SUBJECTIVE: OBJECTIVE: ASSESSMENT AND PLAN: Agree with resident's findings and plan for detox.
[2019-10-15] MEDS ORDERED: METHADONE HCL 40 MG DISPERSABLE TABLET PO SCH (10:00)
[2019-10-15] MEDS: FLUoxetine HCL 10 MG CAPSULE PO SCH (10:42)
[2019-10-15] MEDS: NICOTINE 7 MG/24 HOURS TOPICAL PATCH TD SCH (10:42)
[2019-10-15] MEDS: VALSARTAN 160 MG TABLET (UD) PO SCH (10:42)
[2019-10-15] MEDS: QUEtiapine FUMARATE 100 MG TABLET (FP) PO SCH (10:42)
[2019-10-15] MEDS: PRENATAL VITAMINS W/ FOLIC ACID TABLET (FP) PO SCH (10:42)
--- NOTE | 2019-10-15 11:49 | PN ---
S CIWA - CIWA Score Nausea/Vomitin Muscle Tremors: 2 Anxiety: 2 Agitation: 2 Paroxysmal Sweats: No Perspiration Orientation: 0-Oriented Tacttile Disturbances: 1-Very Mild Itch/Numbness Auditory Disturbances: 0-None Visual Disturbances: 0-None Headache: 1-Very Mild CIWA-Ar Total Score: 10 S Progress Note (SOAP) Subjective: alert,irritable,anxious,interrupted sleep,aching pain in the body and back Objective: 10/15/19 11:55 Vital Signs Temperature 97.3 F L 10/15/19 08:31 Pulse Rate 56 L 10/15/19 08:31 Respiratory Rate 18 10/15/19 08:31 Blood Pressure 155/77 10/15/19 08:31 O2 Sat by Pulse Oximetry (%) 99 10/15/19 07:55 Laboratory Last Values WBC 7.8 K/mm3 (4.0-10.0) 10/14/19 14:15 RBC 4.13 M/mm3 (4.00-5.60) 10/14/19 14:15 Hgb 12.7 GM/dL (11.7-16.9) 10/14/19 14:15 Hct 38.3 % (35.4-49) 10/14/19 14:15 MCV 92.6 fl (80-96) 10/14/19 14:15 MCH 30.6 pg (25.7-33.7) 10/14/19 14:15 MCHC 33.1 g/dl (32.0-35.9) 10/14/19 14:15 RDW 13.1 % (11.9-15.9) 10/14/19 14:15 Plt Count 224 K/MM3 (134-434) 10/14/19 14:15 MPV 10.5 fl (7.5-11.1) 10/14/19 14:15 Sodium 140 mmol/L (136-145) 10/14/19 14:15 Potassium 4.3 mmol/L (3.5-5.1) 10/14/19 14:15 Chloride 104 mmol/L (98-107) 10/14/19 14:15 Carbon Dioxide 32 mmol/L (21-32) 10/14/19 14:15 Anion Gap 4 MMOL/L (8-16) L 10/14/19 14:15 BUN 12.1 mg/dL (7-18) 10/14/19 14:15 Creatinine 0.9 mg/dL (0.55-1.3) 10/14/19 14:15 Est GFR (CKD-EPI)AfAm 95.82 10/14/19 14:15 Est GFR (CKD-EPI)NonAf 82.67 10/14/19 14:15 Random Glucose 112 mg/dL (74-106) H 10/14/19 14:15 Calcium 9.0 mg/dL (8.5-10.1) 10/14/19 14:15 Total Bilirubin 0.4 mg/dL (0.2-1) 10/14/19 14:15 AST 24 U/L (15-37) 10/14/19 14:15 ALT 21 U/L (13-61) 10/14/19 14:15 Alkaline Phosphatase 83 U/L (45-117) 10/14/19 14:15 Total Protein 7.8 g/dl (6.4-8.2) 10/14/19 14:15 Albumin 3.5 g/dl (3.4-5.0) 10/14/19 14:15 Syphilis Serology Non-reactive (NONREACTIVE) 10/14/19 14:15 Assessment: 10/15/19 11:57 withdrawal symptom Plan: continue detox librium regimen,fasting glucose in am,initial glucose 112
[2019-10-15] MEDS: MELATONIN 5 MG TABLETS PO SCH (22:53)
[2019-10-15] MEDS: MIRTAZAPINE 15 MG TABLET (FP) PO SCH (22:53)
[2019-10-15] MEDS: THIAMINE HCL 100 MG TABLET (FP) PO SCH (22:53)
[2019-10-16] MEDS ORDERED: METHADONE HCL 10 MG TABLET ONE (04:37)
[2019-10-16] MEDS ORDERED: METHADONE HCL 40 MG DISPERSABLE TABLET ONE (04:38)
[2019-10-16] MEDS: METHADONE 40 MG, METHADONE 10 MG PO SCH (07:01)
[2019-10-16] MEDS: chlordiazePOXIDE 5 MG CAPSULE PO SCH ×3 (07:01→23:05)
[2019-10-16] MEDS: hydrOXYzine PAMOATE 25 MG CAPSULE (FP) PO SCH ×5 (07:02→23:05)
--- NOTE | 2019-10-16 09:33 | PN ---
S CIWA - CIWA Score Nausea/Vomitin-No Nausea/No Vomiting Muscle Tremors: 2 Anxiety: 2 Agitation: 0-Normal Activity Paroxysmal Sweats: 2 Orientation: 0-Oriented Tacttile Disturbances: 0-None Auditory Disturbances: 0-None Visual Disturbances: 0-None Headache: 2-Mild CIWA-Ar Total Score: 8 BHS Progress Note (SOAP) Subjective: c/o headache, anxiety, shakes, and headache. Objective: 10/16/19 09:33 Vital Signs 10/16/19 10/16/19 05:22 08:36 Temperature 97.4 F L 97.5 F L Pulse Rate 65 61 Respiratory 16 16 Rate Blood Pressure 137/67 162/78 O2 Sat by Pulse 96 Oximetry (%) Laboratory Last Values WBC 7.8 K/mm3 (4.0-10.0) 10/14/19 14:15 RBC 4.13 M/mm3 (4.00-5.60) 10/14/19 14:15 Hgb 12.7 GM/dL (11.7-16.9) 10/14/19 14:15 Hct 38.3 % (35.4-49) 10/14/19 14:15 MCV 92.6 fl (80-96) 10/14/19 14:15 MCH 30.6 pg (25.7-33.7) 10/14/19 14:15 MCHC 33.1 g/dl (32.0-35.9) 10/14/19 14:15 RDW 13.1 % (11.9-15.9) 10/14/19 14:15 Plt Count 224 K/MM3 (134-434) 10/14/19 14:15 MPV 10.5 fl (7.5-11.1) 10/14/19 14:15 Sodium 140 mmol/L (136-145) 10/14/19 14:15 Potassium 4.3 mmol/L (3.5-5.1) 10/14/19 14:15 Chloride 104 mmol/L (98-107) 10/14/19 14:15 Carbon Dioxide 32 mmol/L (21-32) 10/14/19 14:15 Anion Gap 4 MMOL/L (8-16) L 10/14/19 14:15 BUN 12.1 mg/dL (7-18) 10/14/19 14:15 Creatinine 0.9 mg/dL (0.55-1.3) 10/14/19 14:15 Est GFR (CKD-EPI)AfAm 95.82 10/14/19 14:15 Est GFR (CKD-EPI)NonAf 82.67 10/14/19 14:15 Random Glucose 112 mg/dL (74-106) H 10/14/19 14:15 Calcium 9.0 mg/dL (8.5-10.1) 10/14/19 14:15 Total Bilirubin 0.4 mg/dL (0.2-1) 10/14/19 14:15 AST 24 U/L (15-37) 10/14/19 14:15 ALT 21 U/L (13-61) 10/14/19 14:15 Alkaline Phosphatase 83 U/L (45-117) 10/14/19 14:15 Total Protein 7.8 g/dl (6.4-8.2) 10/14/19 14:15 Albumin 3.5 g/dl (3.4-5.0) 10/14/19 14:15 Syphilis Serology Non-reactive (NONREACTIVE) 10/14/19 14:15 Labs noted. Assessment: 10/16/19 09:33 AOX3, in no acute respiratory distress. Full ROM, ambulating in the unit. Withdrawal symptoms. Plan: continue detox.
--- NOTE | 2019-10-16 10:12 | EKG ---
Test Reason : Blood Pressure : / mmHG Vent. Rate : 068 BPM Atrial Rate : 068 BPM P-R Int : 162 ms QRS Dur : 088 ms QT Int : 444 ms P-R-T Axes : 059 044 069 degrees QTc Int : 472 ms SINUS RHYTHM WITH PREMATURE ATRIAL COMPLEXES MINIMAL VOLTAGE CRITERIA FOR LVH, MAY BE NORMAL VARIANT WHEN COMPARED WITH ECG OF 22-JUL-2017 14:06, PREMATURE ATRIAL COMPLEXES ARE NOW PRESENT Confirmed by VAHID FUENTES MD ([id number]) on 10/16/2019 10:11:40 AM Referred By: Confirmed By:VAHID FUENTES MD
[2019-10-16] MEDS: QUEtiapine FUMARATE 100 MG TABLET (FP) PO SCH (10:59)
[2019-10-16] MEDS: PRENATAL VITAMINS W/ FOLIC ACID TABLET (FP) PO SCH (10:59)
[2019-10-16] MEDS: VALSARTAN 160 MG TABLET (UD) PO SCH (11:00)
[2019-10-16] MEDS: NICOTINE 7 MG/24 HOURS TOPICAL PATCH TD SCH (11:00)
[2019-10-16] MEDS: FLUoxetine HCL 10 MG CAPSULE PO SCH (11:00)
[2019-10-16] MEDS: THIAMINE HCL 100 MG TABLET (FP) PO SCH (23:05)
[2019-10-16] MEDS: MIRTAZAPINE 15 MG TABLET (FP) PO SCH (23:05)
[2019-10-16] MEDS: MELATONIN 5 MG TABLETS PO SCH (23:05)
[2019-10-17] MEDS ORDERED: chlordiazePOXIDE HCL 10 MG CAPSULE PO PRN
[2019-10-17] MEDS ORDERED: METHADONE HCL 10 MG TABLET ONE (04:46)
[2019-10-17] MEDS ORDERED: METHADONE HCL 40 MG DISPERSABLE TABLET ONE (04:47)
[2019-10-17] MEDS: hydrOXYzine PAMOATE 25 MG CAPSULE (FP) PO SCH ×5 (06:12→23:07)
[2019-10-17] MEDS: METHADONE 40 MG, METHADONE 10 MG PO SCH (06:12)
[2019-10-17] MEDS: chlordiazePOXIDE HCL 10 MG CAPSULE PO SCH ×3 (06:13→23:07)
[2019-10-17] MEDS: PRENATAL VITAMINS W/ FOLIC ACID TABLET (FP) PO SCH (09:51)
[2019-10-17] MEDS: QUEtiapine FUMARATE 100 MG TABLET (FP) PO SCH (09:51)
[2019-10-17] MEDS: FLUoxetine HCL 10 MG CAPSULE PO SCH (09:52)
[2019-10-17] MEDS: VALSARTAN 160 MG TABLET (UD) PO SCH (09:52)
[2019-10-17] MEDS: NICOTINE 7 MG/24 HOURS TOPICAL PATCH TD SCH (09:52)
--- NOTE | 2019-10-17 09:54 | PN ---
S CIWA - CIWA Score Nausea/Vomitin-Mild Nausea/No Vomiting Muscle Tremors: 1-None Visible, but [place] Anxiety: 1-Mildly Anxious Agitation: 1-Slight > Activity Paroxysmal Sweats: 1-Minimal Palms Moist Orientation: 0-Oriented Tacttile Disturbances: 0-None Auditory Disturbances: 0-None Visual Disturbances: 0-None Headache: 1-Very Mild CIWA-Ar Total Score: 6 BHS Progress Note (SOAP) Subjective: 78 years old male was admitted on 10/14/19 for alcohol withdrawal sx management treating with libirum detox regiment ambulating with walker x 1+ year due to arthritis of both knees encourage mr rojas to consider orthopedic evaluation mr rojas prefers returning to methadone program for behavior and psychosocial therapies as well as orthopedic consultation Objective: 10/17/19 10:07 Vital Signs - 24 hr 10/16/19 10/16/19 10/16/19 12:39 16:54 20:38 Temperature 97.1 F L 97.2 F L 97.5 F L Pulse Rate 59 L 60 68 Respiratory 18 18 18 Rate Blood Pressure 139/65 123/75 156/76 O2 Sat by Pulse 95 96 Oximetry (%) 10/17/19 10/17/19 05:35 08:27 Temperature 97.0 F L 97.1 F L Pulse Rate 65 56 L Respiratory 18 18 Rate Blood Pressure 160/77 161/63 O2 Sat by Pulse 96 Oximetry (%) Laboratory Tests 10/14/19 10/14/19 10/14/19 14:15 14:15 14:15 WBC 7.8 RBC 4.13 Hgb 12.7 Hct 38.3 MCV 92.6 MCH 30.6 MCHC 33.1 RDW 13.1 Plt Count 224 MPV 10.5 Sodium 140 Potassium 4.3 Chloride 104 Carbon Dioxide 32 Anion Gap 4 L BUN 12.1 Creatinine 0.9 Est GFR (CKD-EPI)AfAm 95.82 Est GFR (CKD-EPI)NonAf 82.67 Random Glucose 112 H Fasting Glucose Calcium 9.0 Total Bilirubin 0.4 AST 24 ALT 21 Alkaline Phosphatase 83 Total Protein 7.8 Albumin 3.5 Syphilis Serology Non-reactive COVID-19 (JIGNESH) 10/14/19 10/16/19 15:00 07:50 WBC RBC Hgb Hct MCV MCH MCHC RDW Plt Count MPV Sodium Potassium Chloride Carbon Dioxide Anion Gap BUN Creatinine Est GFR (CKD-EPI)AfAm Est GFR (CKD-EPI)NonAf Random Glucose Fasting Glucose 103 Calcium Total Bilirubin AST ALT Alkaline Phosphatase Total Protein Albumin Syphilis Serology COVID-19 (JIGNESH) Not detected 10/17/19 10:12 bp elevation continue diovan and clonidine 0.1 mg po prn Assessment: 10/17/19 10:12 alcohol withdrawal 10/17/19 10:13 methadone maintenance program 10/17/19 10:13 hypertension Plan: librium regiment methadone 50mg po daily diovan and clonidine prn
[2019-10-17] MEDS ORDERED: cloNIDine HCL 0.1 MG TABLET PO PRN (11:00)
[2019-10-17] MEDS: THIAMINE HCL 100 MG TABLET (FP) PO SCH (23:06)
[2019-10-17] MEDS: MIRTAZAPINE 15 MG TABLET (FP) PO SCH (23:06)
[2019-10-17] MEDS: MELATONIN 5 MG TABLETS PO SCH (23:06)
[2019-10-18] MEDS ORDERED: METHADONE HCL 10 MG TABLET ONE (04:27)
[2019-10-18] MEDS ORDERED: METHADONE HCL 40 MG DISPERSABLE TABLET ONE (04:28)
[2019-10-18] MEDS ORDERED: chlordiazePOXIDE HCL 10 MG CAPSULE PO ONE (05:00)
[2019-10-18] MEDS: hydrOXYzine PAMOATE 25 MG CAPSULE (FP) PO SCH ×2 (05:19→10:44)
[2019-10-18] MEDS: METHADONE 40 MG, METHADONE 10 MG PO SCH (05:19)
[2019-10-18] MEDS: NICOTINE 7 MG/24 HOURS TOPICAL PATCH TD SCH (10:42)
[2019-10-18] MEDS: QUEtiapine FUMARATE 100 MG TABLET (FP) PO SCH (10:42)
[2019-10-18] MEDS: PRENATAL VITAMINS W/ FOLIC ACID TABLET (FP) PO SCH (10:42)
[2019-10-18] MEDS: FLUoxetine HCL 10 MG CAPSULE PO SCH (10:42)
[2019-10-18] MEDS: VALSARTAN 160 MG TABLET (UD) PO SCH (10:44)
[2019-10-18 10:51] VITALS: BP 186/77; PULSE 59; TEMP 97.1
--- NOTE | 2019-10-18 12:23 | PN ---
[facility] CIWA - CIWA Score Nausea/Vomitin-No Nausea/No Vomiting Muscle Tremors: None Anxiety: 1-Mildly Anxious Agitation: 0-Normal Activity Paroxysmal Sweats: No Perspiration Orientation: 0-Oriented Tacttile Disturbances: 0-None Auditory Disturbances: 0-None Visual Disturbances: 0-None Headache: 0-None Present CIWA-Ar Total Score: 1 S Progress Note (SOAP) Subjective: alert,no complaint Objective: 10/18/19 12:20 Vital Signs Temperature 97.1 F L 10/18/19 10:50 Pulse Rate 59 L 10/18/19 10:50 Respiratory Rate 18 10/18/19 10:50 Blood Pressure 186/77 H 10/18/19 10:50 O2 Sat by Pulse Oximetry (%) 97 10/18/19 05:11 10/18/19 12:20 detox completed,no withdrawal symptom Assessment: 10/18/19 12:20 stable for discharge today Plan: stable for discharge today,follow up with after care program [facility] arrangement [facility]
--- NOTE | 2019-10-18 12:28 | DS ---
[facility] Detox Discharge Summary Admission Date: 10/14/19 Discharge Date: 10/18/19 - History Present History: Alcohol Dependence, Cocaine Dependence, MMTP Additional Comments: alert,oriented x 3 ambulation on the unit with walker lung clear on auscultation bilaterally abdomen soft,no distension,no pain ,no tenderness detox completed,no withdrawal symptom stable for discharge follow up with after care program [facility] as arrangement total time of discharge 35 minutes Pertinent Past History: hypertension - Physical Exam Results Vital Signs: Vital Signs Temperature 97.1 F L 10/18/19 10:50 Pulse Rate 59 L 10/18/19 10:50 Respiratory Rate 18 10/18/19 10:50 Blood Pressure 186/77 H 10/18/19 10:50 O2 Sat by Pulse Oximetry (%) 97 10/18/19 05:11 Pertinent Admission Physical Exam Findings: withdrawal symptom Laboratory Last Values WBC 7.8 K/mm3 (4.0-10.0) 10/14/19 14:15 RBC 4.13 M/mm3 (4.00-5.60) 10/14/19 14:15 Hgb 12.7 GM/dL (11.7-16.9) 10/14/19 14:15 Hct 38.3 % (35.4-49) 10/14/19 14:15 MCV 92.6 fl (80-96) 10/14/19 14:15 MCH 30.6 pg (25.7-33.7) 10/14/19 14:15 MCHC 33.1 g/dl (32.0-35.9) 10/14/19 14:15 RDW 13.1 % (11.9-15.9) 10/14/19 14:15 Plt Count 224 K/MM3 (134-434) 10/14/19 14:15 MPV 10.5 fl (7.5-11.1) 10/14/19 14:15 Sodium 140 mmol/L (136-145) 10/14/19 14:15 Potassium 4.3 mmol/L (3.5-5.1) 10/14/19 14:15 Chloride 104 mmol/L (98-107) 10/14/19 14:15 Carbon Dioxide 32 mmol/L (21-32) 10/14/19 14:15 Anion Gap 4 MMOL/L (8-16) L 10/14/19 14:15 BUN 12.1 mg/dL (7-18) 10/14/19 14:15 Creatinine 0.9 mg/dL (0.55-1.3) 10/14/19 14:15 Est GFR (CKD-EPI)AfAm 95.82 10/14/19 14:15 Est GFR (CKD-EPI)NonAf 82.67 10/14/19 14:15 Random Glucose 112 mg/dL (74-106) H 10/14/19 14:15 Fasting Glucose 103 mg/dL (74-106) 10/16/19 07:50 Calcium 9.0 mg/dL (8.5-10.1) 10/14/19 14:15 Total Bilirubin 0.4 mg/dL (0.2-1) 10/14/19 14:15 AST 24 U/L (15-37) 10/14/19 14:15 ALT 21 U/L (13-61) 10/14/19 14:15 Alkaline Phosphatase 83 U/L (45-117) 10/14/19 14:15 Total Protein 7.8 g/dl (6.4-8.2) 10/14/19 14:15 Albumin 3.5 g/dl (3.4-5.0) 10/14/19 14:15 Syphilis Serology Non-reactive (NONREACTIVE) 10/14/19 14:15 COVID-19 (JIGNESH) Not detected (Not Detected) 10/14/19 15:00 Vital Signs Temperature 97.1 F L 10/18/19 10:50 Pulse Rate 59 L 10/18/19 10:50 Respiratory Rate 18 10/18/19 10:50 Blood Pressure 186/77 H 10/18/19 10:50 O2 Sat by Pulse Oximetry (%) 97 10/18/19 05:11 - Treatment Hospital Course: Detox Protocol Followed, Detoxed Safely, Responded well, Discharged Condition Good, Rehab Referral Accepted Patient has Accepted a Rehab Referral to: [facility] - Medication Discharge Medications: Ambulatory Orders Fluoxetine HCl [Prozac -] 10 mg PO DAILY 10/14/19 Methadone [Dolophine -] 50 mg PO DAILY 10/14/19 Mirtazapine 15 mg PO HS 10/14/19 Quetiapine Fumarate [Seroquel -] 100 mg PO DAILY 10/14/19 Valsartan [Diovan] 160 mg PO DAILY 10/14/19 - Diagnosis (1) Alcohol dependence with uncomplicated intoxication Status: Acute (2) Cocaine dependence Status: Acute (3) Walker as ambulation aid Status: Acute (4) Methadone maintenance therapy patient Status: Chronic - AMA Did Patient Leave Against Medical Advice: No
== END 2019-10-18 11:03 | disposition other institution (70) | DRG 897 ==
LOC: YASAS 11:21 → Y3N 13:49
PROVIDERS: ADMIT Allergy & Immunology; ATTEND Allergy & Immunology
PROC: HZ2ZZZZ Detoxification Services for Substance Abuse Treatment (ICD-10-PCS; principal; 2019-10-14)
DX: F10.230 Alcohol dependence with withdrawal, uncomplicated (principal); F11.20 Opioid dependence, uncomplicated; F14.20 Cocaine dependence, uncomplicated; F19.280 Other psychoactive substance dependence with psychoactive substance-induced anxiety disorder; F32.9 Major depressive disorder, single episode, unspecified; I10 Essential (primary) hypertension; I83.893 Varicose veins of bilateral lower extremities with other complications; M17.0 Bilateral primary osteoarthritis of knee; M25.462 Effusion, left knee; Z99.89 Dependence on other enabling machines and devices
CPT/HCPCS: 36415; 80053; 82947; 85027; 86780; 93005; 93010; J0735; U0003

== ENCOUNTER 2019-10-18 11:23 | Inpatient (IN) | payer OTHER ==
--- NOTE | 2019-10-18 11:58 | HP ---
[facility] Rehab Assess/Revision - Admission History Admitted to Rehab from: [facility] Date of Admission to Rehab: 10/18/19 - Findings Detox History & Physical reviewed: Yes Concur with findings: Yes Comments/Additional Findings: trasnferred from detox to rehab admission as per protocol Inpatient Rehab Admission - Rehab Decision to Admit Inpatient rehab admission?: Yes - Initial Determination Are CD services needed?: Yes Free of communicable disease: Yes Not in need of hospitalization: Yes - Rehab Admission Criteria Previous failed treatment: Yes Poor recovery environment: Yes Comorbidities: Yes Lacks judgement: Yes Patient is meeting Inpatient Rehab admission criteria:: Yes
[2019-10-18] MEDS ORDERED: P-EPHED 60MG/TRIPROLIDI 2.5MG TABLET PO PRN (12:01)
[2019-10-18] MEDS ORDERED: NICOTINE POLACRILEX 2 MG GUM BUC PRN (12:01)
[2019-10-18] MEDS ORDERED: LOPERAMIDE HCL 2 MG CAPSULE PO PRN (12:01)
[2019-10-18] MEDS ORDERED: MAG HYDROX/AL HYDROX/SIMETH 30 ML UNIT-DOSE CUP PO PRN (12:01)
[2019-10-18] MEDS ORDERED: IBUPROFEN 400 MG TABLET (FP) PO PRN (12:01)
[2019-10-18] MEDS ORDERED: MAGNESIUM HYDROX 2400MG/30ML ORAL SUSPENSION 30 ML CUP PO PRN (12:01)
[2019-10-18] MEDS ORDERED: MAGNESIUM CITRATE 300 ML BOTTLE PO PRN (12:01)
[2019-10-18] MEDS ORDERED: ACETAMINOPHEN 325 MG TABLET (FP) PO PRN (12:01)
[2019-10-18] MEDS ORDERED: guaiFENesin 200 MG/10 ML 10 ML UNIT-DOSE CUPS PO PRN (12:01)
[2019-10-18] MEDS: MIRTAZAPINE 15 MG TABLET (FP) PO SCH (22:09)
[2019-10-18] MEDS: MELATONIN 5 MG TABLETS PO SCH (22:09)
[2019-10-18] MEDS: THIAMINE HCL 100 MG TABLET (FP) PO SCH (22:10)
[2019-10-18] MEDS ORDERED: PT OWN MED DRAWER 7, Y5N ONE (22:27)
[2019-10-19] MEDS ORDERED: METHADONE HCL 40 MG DISPERSABLE TABLET ONE (04:57)
[2019-10-19] MEDS ORDERED: METHADONE HCL 10 MG TABLET ONE (04:57)
[2019-10-19] MEDS ORDERED: METHADONE HCL 40 MG DISPERSABLE TABLET PO SCH (06:00)
[2019-10-19] MEDS: METHADONE 40 MG, METHADONE 10 MG PO SCH (06:28)
--- NOTE | 2019-10-19 09:20 | CONSULT ---
[facility] Psychiatric Consult - Data Date of interview: 10/19/19 Admission source: [facility] Identifying data: Patient is a 78 year but south [place] male, father of one, domiciled, and is supported with [facility] benefits. This is one of multiple admissions for patient. Patient admitted to for alcohol and cocaine dependence. Substance Abuse History: Smoking Cessation. Smoking history: Never smoked. Have you smoked in the past 12 months: No. Cigars Per Day: 0. Hx Chewing Tobacco Use: No. Initiated information on smoking cessation: No. - Substances abused. Alcohol. Substance route: Oral. Frequency: Daily. Amount used: ( 3)24oz cans of beer. Age of first use: 65. Date of last use: 10/14/19. Cocaine. Substance route: Inhalation. Frequency: 3-6 times per week. Amount used: 1 gram. Age of first use: 64. Date of last use: 10/13/19 Medical History: Significant for HTN, Pneumonia, Constipation, GI Bleed, Pancreatitis, Hepatitis A, Hepatitis B, Hepatitis C Psychiatric History: Patient seen by machine sign writer in detox. History remains consistent. Patient denies history of psychiatric hospitalization, suicide attempt, and outpatient psychiatric care. Mr. Mosqueda reports starting psychotropic medications last month after receiving treatment in a rehab located in [place], [place]. Diagnosis of Depression. Medication summary reviewed and noted that patient is prescribed Prozac 10mg daily + remeron 15mg HS + Seroquel 100mg daily. Medications confirmed by resident Elsa. Mr. Mosqueda reports medication compliance. At present patient reports stable mood. Physical/Sexual Abuse/Trauma History: denies. Mental Status Exam - Mental Status Exam Alert and Oriented to: Time, Place, Person Cognitive Function: Good Patient Appearance: Well Groomed Mood: Hopeful Affect: Appropriate Patient Behavior: Appropriate, Cooperative Speech Pattern: Appropriate Voice Loudness: Normal Thought Process: Goal Oriented Thought Disorder: Not Present Hallucinations: Denies Suicidal Ideation: Denies Homicidal Ideation: Denies Insight/Judgement: Poor Sleep: Fair Appetite: Fair Muscle strength/Tone: Normal Gait/Station: Other (Amulates with a rolling walker.) Psychiatric Findings - Problem List ([place] 1, 2,3) (1) Alcohol use disorder Current Visit: Yes Status: Acute Comment: . (2) Cocaine dependence Current Visit: Yes Status: Acute Comment: . 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 Rehab in progress. Will continue medications ordered in detox: Prozac 10mg daily + Seroquel 100mg daily + Remeron 15mg HS. Benefits and side effects discussued. Verbal consent given.
[2019-10-19] MEDS: NICOTINE 7 MG/24 HOURS TOPICAL PATCH TD SCH (10:08)
[2019-10-19] MEDS: PRENATAL VITAMINS W/ FOLIC ACID TABLET (FP) PO SCH (10:08)
[2019-10-19] MEDS: FLUoxetine HCL 10 MG CAPSULE PO SCH (10:08)
[2019-10-19] MEDS: QUEtiapine FUMARATE 100 MG TABLET (FP) PO SCH (10:09)
[2019-10-19] MEDS ORDERED: PT OWN MED DRAWER 7, Y5N ONE (10:09)
[2019-10-19] MEDS: VALSARTAN 160 MG TABLET (UD) PO SCH (10:57)
[2019-10-19] MEDS: MIRTAZAPINE 15 MG TABLET (FP) PO SCH (21:14)
[2019-10-19] MEDS: THIAMINE HCL 100 MG TABLET (FP) PO SCH (21:15)
[2019-10-19] MEDS: MELATONIN 5 MG TABLETS PO SCH (21:15)
[2019-10-20] MEDS ORDERED: METHADONE HCL 40 MG DISPERSABLE TABLET ONE (05:31)
[2019-10-20] MEDS ORDERED: METHADONE HCL 10 MG TABLET ONE (05:31)
[2019-10-20] MEDS: METHADONE 40 MG, METHADONE 10 MG PO SCH (05:59)
[2019-10-20] MEDS: NICOTINE 7 MG/24 HOURS TOPICAL PATCH TD SCH (09:19)
[2019-10-20] MEDS: VALSARTAN 160 MG TABLET (UD) PO SCH (09:19)
[2019-10-20] MEDS: QUEtiapine FUMARATE 100 MG TABLET (FP) PO SCH (09:19)
[2019-10-20] MEDS: FLUoxetine HCL 10 MG CAPSULE PO SCH (09:19)
[2019-10-20] MEDS: PRENATAL VITAMINS W/ FOLIC ACID TABLET (FP) PO SCH (09:19)
--- NOTE | 2019-10-20 10:19 | PN ---
[facility] Progress Note (SOAP) Subjective: Received report from nursing staff that Mr. Mosqueda's BP was elevated. Patient states he does not understand the reason it is high. He denies headache, dizziness, nausea, or any other symptom of elevated B> Objective: Vital Signs (72 hours) 10/18/19 10/18/19 10/18/19 11:59 14:32 20:40 Temperature 97.5 F L 98.0 F Pulse Rate 60 66 Respiratory 16 Rate Blood Pressure 134/79 172/81 H O2 Sat by Pulse 95 95 97 Oximetry (%) 10/19/19 10/19/19 10/19/19 06:22 08:37 14:31 Temperature 98.2 F 97.7 F Pulse Rate 65 61 Respiratory 18 18 Rate Blood Pressure 153/88 166/80 O2 Sat by Pulse 98 95 97 Oximetry (%) 10/19/19 10/20/19 10/20/19 20:35 05:55 08:27 Temperature 97.7 F 98.4 F 97.8 F Pulse Rate 59 L 64 Respiratory 18 18 Rate Blood Pressure 188/86 H 202/85 H O2 Sat by Pulse 98 96 98 Oximetry (%) 10/20/19 08:29 Temperature Pulse Rate Respiratory Rate Blood Pressure 190/80 H O2 Sat by Pulse Oximetry (%) P/E: General: no apparent distress HEENTM: PERRLA, EOMI, Normocephalic Neck: Supple, no JVD Lungs: respirations unlabored, lungs clear CARDIAC: s1 s2 audible, regular ABD: +BS Neuro: CN 2-12 intact, no cognitive deficits 10/20/19 10:15 Assessment: Uncontrolled HTN Patient is on Diovan 160mg once a day. Prescriptions checked. He was previously on HCTZ. Because prescribing 160mg of Diovan BID requires close monitoring that we may not be able to achieve in rehab, HCTZ 12.5 mg will be added to his regimen, 10/20/19 10:17 Plan: HCTZ 12. mg started. Repeat BP was 146/87. Increased BP monitoring to BID
[2019-10-20] MEDS: HYDROCHLOROTHIAZIDE 12.5 MG CAPSULE (FP) PO SCH (10:22)
[2019-10-20] MEDS: THIAMINE HCL 100 MG TABLET (FP) PO SCH (21:16)
[2019-10-20] MEDS: MELATONIN 5 MG TABLETS PO SCH (21:16)
[2019-10-20] MEDS: MIRTAZAPINE 15 MG TABLET (FP) PO SCH (21:16)
[2019-10-21] MEDS ORDERED: METHADONE HCL 40 MG DISPERSABLE TABLET ONE (05:32)
[2019-10-21] MEDS ORDERED: METHADONE HCL 10 MG TABLET ONE (05:32)
[2019-10-21] MEDS: METHADONE 40 MG, METHADONE 10 MG PO SCH (06:11)
[2019-10-21] MEDS ORDERED: PT OWN MED DRAWER 7, Y5N ONE (08:48)
[2019-10-21] MEDS: FLUoxetine HCL 10 MG CAPSULE PO SCH (09:38)
[2019-10-21] MEDS: NICOTINE 7 MG/24 HOURS TOPICAL PATCH TD SCH (09:38)
[2019-10-21] MEDS: VALSARTAN 160 MG TABLET (UD) PO SCH (09:38)
[2019-10-21] MEDS: QUEtiapine FUMARATE 100 MG TABLET (FP) PO SCH (09:38)
[2019-10-21] MEDS: PRENATAL VITAMINS W/ FOLIC ACID TABLET (FP) PO SCH (09:38)
[2019-10-21] MEDS: HYDROCHLOROTHIAZIDE 12.5 MG CAPSULE (FP) PO SCH (09:38)
--- NOTE | 2019-10-21 10:12 | PN ---
[facility] Progress Note Note: Patient with elevated BP. Started yesterday on HCZ 12.5. BP this morning at 204/97. However, patient was talking and moving; it was ~2 hour after administration of BP medication. Patient was asymptomatic. Vital Signs Period Temp Pulse Resp BP Sys/San Pulse Ox Last 24 Hr 97.5 F-98 F 60-72 18-18 160-204/84-97 95-98 Repeat was 164/97. Requested that NA repeat BP at noon, 2 hours after patient receives his HCTZ. Will continue to monitor.
--- NOTE | 2019-10-21 14:49 | PN ---
[facility] Progress Note Note: patient BP is 151/81. Continue to monitor.
[2019-10-21] MEDS: THIAMINE HCL 100 MG TABLET (FP) PO SCH (21:39)
[2019-10-21] MEDS: MELATONIN 5 MG TABLETS PO SCH (21:40)
[2019-10-21] MEDS: MIRTAZAPINE 15 MG TABLET (FP) PO SCH (21:40)
[2019-10-22] MEDS ORDERED: METHADONE HCL 40 MG DISPERSABLE TABLET ONE (03:37)
[2019-10-22] MEDS ORDERED: METHADONE HCL 10 MG TABLET ONE (03:38)
[2019-10-22] MEDS: METHADONE 40 MG, METHADONE 10 MG PO SCH (06:08)
[2019-10-22] MEDS: QUEtiapine FUMARATE 100 MG TABLET (FP) PO SCH (10:15)
[2019-10-22] MEDS: VALSARTAN 160 MG TABLET (UD) PO SCH (10:15)
[2019-10-22] MEDS: HYDROCHLOROTHIAZIDE 12.5 MG CAPSULE (FP) PO SCH (10:15)
[2019-10-22] MEDS: FLUoxetine HCL 10 MG CAPSULE PO SCH (10:16)
[2019-10-22] MEDS: NICOTINE 7 MG/24 HOURS TOPICAL PATCH TD SCH (10:16)
[2019-10-22] MEDS: PRENATAL VITAMINS W/ FOLIC ACID TABLET (FP) PO SCH (10:18)
[2019-10-22] MEDS: MELATONIN 5 MG TABLETS PO SCH (21:18)
[2019-10-22] MEDS: MIRTAZAPINE 15 MG TABLET (FP) PO SCH (21:18)
[2019-10-22] MEDS: THIAMINE HCL 100 MG TABLET (FP) PO SCH (21:18)
[2019-10-23] MEDS ORDERED: METHADONE HCL 40 MG DISPERSABLE TABLET ONE (03:33)
[2019-10-23] MEDS ORDERED: METHADONE HCL 10 MG TABLET ONE (03:33)
[2019-10-23] MEDS: METHADONE 40 MG, METHADONE 10 MG PO SCH (06:37)
[2019-10-23] MEDS: VALSARTAN 160 MG TABLET (UD) PO SCH (09:02)
[2019-10-23] MEDS: HYDROCHLOROTHIAZIDE 12.5 MG CAPSULE (FP) PO SCH (09:02)
[2019-10-23] MEDS: FLUoxetine HCL 10 MG CAPSULE PO SCH (09:02)
[2019-10-23] MEDS: PRENATAL VITAMINS W/ FOLIC ACID TABLET (FP) PO SCH (09:02)
[2019-10-23] MEDS: QUEtiapine FUMARATE 100 MG TABLET (FP) PO SCH (09:03)
[2019-10-23] MEDS: NICOTINE 7 MG/24 HOURS TOPICAL PATCH TD SCH (09:03)
--- NOTE | 2019-10-23 17:02 | PN ---
Psychiatric Progress Note Vital Signs: Vital Signs Period Temp Pulse Resp BP Sys/San Pulse Ox Last 24 Hr 97.5 F-98 F 64-79 18-20 149-189/72-90 95-96 Date of Session: 10/23/19 Chief Complaint:: " I feel drowsy." HPI: Day 6 of rehabilitation treatment for this 78 y/o male addressing BONNY issues of opioid + cocaine co-morbid with chronic insomnia. Medical provider requested a psychiatric reassessment for this patient due to oversedation + d aytime sleepiness. ROS: Patient is found lying in bed. Sedated but able to maintain some conversation. No evidence of distress. Current Medications: Active Medications Generic Name Dose Route Start Last Admin Trade Name Freq PRN Reason Stop Dose Admin Acetaminophen 650 mg 10/18/19 12:01 Tylenol - PO Q4H PRN FEVER Al Hydroxide/Mg Hydroxide 30 ml 10/18/19 12:01 Mylanta Oral Suspension - PO Q6H PRN DYSPEPSIA Fluoxetine HCl 10 mg 10/19/19 10:00 10/23/19 09:02 Prozac - PO 10 mg DAILY FRANKO Administration Guaifenesin 10 ml 10/18/19 12:01 Robitussin - PO Q6H PRN COUGH Hydrochlorothiazide 12.5 mg 10/20/19 10:00 10/23/19 09:02 Hctz - PO 12.5 mg DAILY FRANKO Administration Ibuprofen 400 mg 10/18/19 12:01 Motrin - PO Q6H PRN Pain level 4-6 Loperamide HCl 4 mg 10/18/19 12:01 Imodium - PO Q6H PRN DIARRHEA Magnesium Citrate 300 ml 10/18/19 12:01 Citroma - PO Q48H PRN CONSTIPATION Magnesium Hydroxide 30 ml 10/18/19 12:01 Milk Of Magnesia - PO DAILY PRN CONSTIPATION Melatonin 5 mg 10/18/19 22:00 10/22/19 21:18 Melatonin PO 5 mg HS FRANKO Administration Methadone HCl 40 mg/ Methadone 50 mg 10/19/19 06:00 10/23/19 06:37 HCl 10 mg PO 50 mg DAILY@0600 FRANKO Administration Mirtazapine 15 mg 10/18/19 22:00 10/22/19 21:18 Remeron - PO 15 mg HS FRANKO Administration Nicotine 7 mg 10/19/19 10:00 10/23/19 09:03 Nicoderm Patch - TD 7 mg DAILY FRANKO Administration Nicotine Polacrilex 2 mg 10/18/19 12:01 Nicorette Gum - BUC Q2H PRN NICOTINE REPLACEMENT RX Multivit/Folic Acid/Iron 1 tab 10/19/19 10:00 10/23/19 09:02 Vitamins (Sjr) - PO 1 tab DAILY FRANKO Administration Pseudoephedrine/Triprolidine 1 combo 10/18/19 12:01 Actifed - PO TID PRN NASAL CONGESTION Quetiapine Fumarate 100 mg 10/19/19 10:00 10/23/19 09:03 Seroquel - PO 100 mg DAILY FRANKO Administration Thiamine HCl 100 mg 10/18/19 22:00 10/22/19 21:18 Vitamin B1 - PO 100 mg HS FRANKO Administration Valsartan 160 mg 10/19/19 10:00 10/23/19 09:02 Diovan - PO 160 mg DAILY FRANKO Administration Medication(s) Change(s): In view of patient's sedation, seroquel and mirtazapine are discontinued until further orders. Current Side Effect: No Lab tests ordered: No Lab tests reviewed: Yes Provider note:: Chart reviewed. squeezer operator Ronel Durand's note (10/19/19) : read and appreciated. Patient is interviewed at bedside. Mr Mosqueda understands that his current condition is due to medication (wants seroquel schedule switched to bedtime). " I always feel drowsy and unsteady when I take seroquel during the day. Change it to nightime." Patient remains fully oriented, talkative but he is slow, slurred and not able to ambulate safely (risk of falls). Cooperative. Not suicidal or homicidal. Patient can be managed at [facility]. Recommend a follow-up assessment by Psychiatry-Liaison before resuming seroquel (not during daytime + to be prescribed at reduced dose) and remeron. Discussed with nurse on duty. Total face to face time:: 25 Mental Status Exam - Mental Status Exam Alert and Oriented to: Time, Place, Person Cognitive Function: Grossly Intact Patient Appearance: Well Groomed Mood: Withdrawn Affect: Constricted Patient Behavior: Sedated (moderately sedated; patient is able to converse with personal lines underwriter; answers slowly to questions), Fatigued, Cooperative Speech Pattern: Delayed, Slurred Voice Loudness: Mildly Soft/Quiet Thought Process: Goal Oriented Thought Disorder: Not Present Hallucinations: Denies Suicidal Ideation: Denies Homicidal Ideation: Denies Insight/Judgement: Fair Sleep: Well Appetite: Good Gait/Station: Other (not observed; patient is advised to stay in bed for falls prevention) Psychiatric Treatment Plan - Problem List (1) Sedated due to medication Current Visit: Yes Comment: . (2) Opioid dependence on agonist therapy Current Visit: Yes Comment: . Initial treatment plan: . (3) Alcohol use disorder Current Visit: Yes Comment: . (4) Cocaine dependence Current Visit: Yes Comment: .
[2019-10-23] MEDS: MELATONIN 5 MG TABLETS PO SCH (21:36)
[2019-10-23] MEDS: THIAMINE HCL 100 MG TABLET (FP) PO SCH (21:36)
[2019-10-24] MEDS ORDERED: METHADONE HCL 40 MG DISPERSABLE TABLET ONE (03:16)
[2019-10-24] MEDS ORDERED: METHADONE HCL 10 MG TABLET ONE (03:17)
[2019-10-24] MEDS: METHADONE 40 MG, METHADONE 10 MG PO SCH (06:22)
--- NOTE | 2019-10-24 07:12 | PN ---
[facility] Progress Note Note: ASKED TO EVALUATE ELEVATED B/P Vital Signs (72 hours) 10/21/19 10/21/19 10/21/19 08:20 08:22 14:27 Temperature 97.8 F Pulse Rate 67 Respiratory 18 Rate Blood Pressure 204/92 H 161/97 O2 Sat by Pulse 98 96 Oximetry (%) 10/21/19 10/22/19 10/22/19 20:29 06:04 08:39 Temperature 97.5 F L 98.4 F 97.7 F Pulse Rate 66 72 Respiratory 18 17 Rate Blood Pressure 152/81 176/87 H O2 Sat by Pulse 96 96 96 Oximetry (%) 10/22/19 10/22/19 10/23/19 13:33 22:28 06:32 Temperature 97.5 F L 98 F Pulse Rate 66 64 Respiratory 18 20 Rate Blood Pressure 149/72 183/90 H O2 Sat by Pulse 96 95 96 Oximetry (%) 10/23/19 10/23/19 10/23/19 07:26 08:49 14:06 Temperature 98 F Pulse Rate 77 Respiratory 18 Rate Blood Pressure 165/80 189/83 H O2 Sat by Pulse 95 Oximetry (%) 10/23/19 10/23/19 10/23/19 14:41 20:40 20:50 Temperature Pulse Rate 79 69 Respiratory 18 Rate Blood Pressure 158/90 197/87 H O2 Sat by Pulse 96 96 Oximetry (%) 10/24/19 06:16 Temperature 97.7 F Pulse Rate 64 Respiratory 20 Rate Blood Pressure 180/111 H O2 Sat by Pulse 97 Oximetry (%) CLIENT IS ASYMPTOMATIC. A- HTN P- CHANGE DIOVAN TO @ 6AM NOTED IN PATIENTS HX HCTZ 25 MG DAILY. HCTZ INCREASED TO 25 MG DAILY C/W VS BID MONITOR CLINICALLY
[2019-10-24] MEDS: VALSARTAN 160 MG TABLET (UD) PO SCH (07:19)
[2019-10-24] MEDS: NICOTINE 7 MG/24 HOURS TOPICAL PATCH TD SCH (09:38)
[2019-10-24] MEDS: HYDROCHLOROTHIAZIDE 25 MG TABLET (FP) PO SCH (09:38)
[2019-10-24] MEDS: PRENATAL VITAMINS W/ FOLIC ACID TABLET (FP) PO SCH (09:38)
[2019-10-24] MEDS: FLUoxetine HCL 10 MG CAPSULE PO SCH (09:38)
[2019-10-24] MEDS: THIAMINE HCL 100 MG TABLET (FP) PO SCH (21:33)
[2019-10-24] MEDS: MELATONIN 5 MG TABLETS PO SCH (21:33)
[2019-10-25] MEDS ORDERED: METHADONE HCL 40 MG DISPERSABLE TABLET ONE (03:20)
[2019-10-25] MEDS ORDERED: METHADONE HCL 10 MG TABLET ONE (03:20)
[2019-10-25] MEDS: VALSARTAN 160 MG TABLET (UD) PO SCH (06:32)
[2019-10-25] MEDS: METHADONE 40 MG, METHADONE 10 MG PO SCH (06:32)
[2019-10-25] MEDS: HYDROCHLOROTHIAZIDE 25 MG TABLET (FP) PO SCH (09:50)
[2019-10-25] MEDS: NICOTINE 7 MG/24 HOURS TOPICAL PATCH TD SCH (09:50)
[2019-10-25] MEDS: PRENATAL VITAMINS W/ FOLIC ACID TABLET (FP) PO SCH (09:50)
[2019-10-25] MEDS: FLUoxetine HCL 10 MG CAPSULE PO SCH (09:50)
[2019-10-25] MEDS: THIAMINE HCL 100 MG TABLET (FP) PO SCH (22:39)
[2019-10-25] MEDS: MELATONIN 5 MG TABLETS PO SCH (22:39)
[2019-10-26] MEDS ORDERED: METHADONE HCL 40 MG DISPERSABLE TABLET ONE (05:32)
[2019-10-26] MEDS ORDERED: METHADONE HCL 10 MG TABLET ONE (05:32)
[2019-10-26] MEDS: VALSARTAN 160 MG TABLET (UD) PO SCH (06:43)
[2019-10-26] MEDS: METHADONE 40 MG, METHADONE 10 MG PO SCH (06:43)
[2019-10-26] MEDS: FLUoxetine HCL 10 MG CAPSULE PO SCH (09:29)
[2019-10-26] MEDS: PRENATAL VITAMINS W/ FOLIC ACID TABLET (FP) PO SCH (09:29)
[2019-10-26] MEDS: HYDROCHLOROTHIAZIDE 25 MG TABLET (FP) PO SCH (09:30)
[2019-10-26] MEDS: NICOTINE 7 MG/24 HOURS TOPICAL PATCH TD SCH (09:30)
[2019-10-26] MEDS: MELATONIN 5 MG TABLETS PO SCH (21:42)
[2019-10-26] MEDS: THIAMINE HCL 100 MG TABLET (FP) PO SCH (21:42)
[2019-10-27] MEDS ORDERED: METHADONE HCL 40 MG DISPERSABLE TABLET ONE (04:11)
[2019-10-27] MEDS ORDERED: METHADONE HCL 10 MG TABLET ONE (04:12)
[2019-10-27] MEDS: METHADONE 40 MG, METHADONE 10 MG PO SCH (06:27)
[2019-10-27] MEDS: VALSARTAN 160 MG TABLET (UD) PO SCH (06:27)
[2019-10-27] MEDS: HYDROCHLOROTHIAZIDE 25 MG TABLET (FP) PO SCH ×2 (09:44→18:55)
[2019-10-27] MEDS: PRENATAL VITAMINS W/ FOLIC ACID TABLET (FP) PO SCH (09:44)
[2019-10-27] MEDS: NICOTINE 7 MG/24 HOURS TOPICAL PATCH TD SCH (09:44)
[2019-10-27] MEDS: FLUoxetine HCL 10 MG CAPSULE PO SCH (09:44)
--- NOTE | 2019-10-27 11:14 | PN ---
[facility] Progress Note Note: BP continues to be elevated, HCTZ increased to 25 BID Vital Signs Period Temp Pulse Resp BP Sys/San Pulse Ox Last 24 Hr 97.3 F-97.5 F 57-66 18-18 150-174/83-93 9-97
[2019-10-27] MEDS: MELATONIN 5 MG TABLETS PO SCH (21:44)
[2019-10-27] MEDS: THIAMINE HCL 100 MG TABLET (FP) PO SCH (21:44)
[2019-10-28] MEDS ORDERED: METHADONE HCL 10 MG TABLET ONE (03:02)
[2019-10-28] MEDS ORDERED: METHADONE HCL 40 MG DISPERSABLE TABLET ONE (03:02)
[2019-10-28] MEDS: VALSARTAN 160 MG TABLET (UD) PO SCH (06:37)
[2019-10-28] MEDS: METHADONE 40 MG, METHADONE 10 MG PO SCH (06:38)
[2019-10-28] MEDS: PRENATAL VITAMINS W/ FOLIC ACID TABLET (FP) PO SCH (10:16)
[2019-10-28] MEDS: NICOTINE 7 MG/24 HOURS TOPICAL PATCH TD SCH (10:16)
[2019-10-28] MEDS: HYDROCHLOROTHIAZIDE 25 MG TABLET (FP) PO SCH ×2 (10:16→17:44)
[2019-10-28] MEDS: FLUoxetine HCL 10 MG CAPSULE PO SCH (10:16)
[2019-10-28] MEDS: THIAMINE HCL 100 MG TABLET (FP) PO SCH (21:36)
[2019-10-28] MEDS: MELATONIN 5 MG TABLETS PO SCH (21:36)
[2019-10-29] MEDS ORDERED: METHADONE HCL 40 MG DISPERSABLE TABLET ONE (04:12)
[2019-10-29] MEDS ORDERED: PT OWN MED DRAWER 7, Y5N ONE (04:12)
[2019-10-29] MEDS ORDERED: METHADONE HCL 10 MG TABLET ONE (04:13)
[2019-10-29] MEDS: VALSARTAN 160 MG TABLET (UD) PO SCH (07:05)
[2019-10-29] MEDS: METHADONE 40 MG, METHADONE 10 MG PO SCH (07:05)
[2019-10-29] MEDS: PRENATAL VITAMINS W/ FOLIC ACID TABLET (FP) PO SCH (09:46)
[2019-10-29] MEDS: HYDROCHLOROTHIAZIDE 25 MG TABLET (FP) PO SCH ×2 (09:47→17:14)
[2019-10-29] MEDS: NICOTINE 7 MG/24 HOURS TOPICAL PATCH TD SCH (09:47)
[2019-10-29] MEDS: FLUoxetine HCL 10 MG CAPSULE PO SCH (09:47)
[2019-10-29] MEDS: THIAMINE HCL 100 MG TABLET (FP) PO SCH (21:16)
[2019-10-29] MEDS: MELATONIN 5 MG TABLETS PO SCH (21:16)
[2019-10-30] MEDS ORDERED: METHADONE HCL 10 MG TABLET ONE (05:35)
[2019-10-30] MEDS ORDERED: METHADONE HCL 40 MG DISPERSABLE TABLET ONE (05:35)
[2019-10-30] MEDS: VALSARTAN 160 MG TABLET (UD) PO SCH (06:33)
[2019-10-30] MEDS: METHADONE 40 MG, METHADONE 10 MG PO SCH (06:34)
[2019-10-30] MEDS: NICOTINE 7 MG/24 HOURS TOPICAL PATCH TD SCH (09:57)
[2019-10-30] MEDS: PRENATAL VITAMINS W/ FOLIC ACID TABLET (FP) PO SCH (09:57)
[2019-10-30] MEDS: FLUoxetine HCL 10 MG CAPSULE PO SCH (09:57)
[2019-10-30] MEDS: HYDROCHLOROTHIAZIDE 25 MG TABLET (FP) PO SCH ×2 (09:57→17:47)
[2019-10-30] MEDS: THIAMINE HCL 100 MG TABLET (FP) PO SCH (21:28)
[2019-10-30] MEDS: MELATONIN 5 MG TABLETS PO SCH (21:28)
[2019-10-31] MEDS ORDERED: METHADONE HCL 40 MG DISPERSABLE TABLET ONE (05:31)
[2019-10-31] MEDS ORDERED: METHADONE HCL 10 MG TABLET ONE (05:31)
[2019-10-31] MEDS: METHADONE 40 MG, METHADONE 10 MG PO SCH (06:19)
[2019-10-31] MEDS: VALSARTAN 160 MG TABLET (UD) PO SCH (06:19)
[2019-10-31] MEDS: PRENATAL VITAMINS W/ FOLIC ACID TABLET (FP) PO SCH (10:11)
[2019-10-31] MEDS: NICOTINE 7 MG/24 HOURS TOPICAL PATCH TD SCH (10:11)
[2019-10-31] MEDS: FLUoxetine HCL 10 MG CAPSULE PO SCH (10:11)
[2019-10-31] MEDS: HYDROCHLOROTHIAZIDE 25 MG TABLET (FP) PO SCH ×2 (10:11→17:50)
[2019-10-31] MEDS: THIAMINE HCL 100 MG TABLET (FP) PO SCH (21:15)
[2019-10-31] MEDS: MELATONIN 5 MG TABLETS PO SCH (21:15)
[2019-11-01] MEDS ORDERED: METHADONE HCL 10 MG TABLET ONE (03:14)
[2019-11-01] MEDS ORDERED: METHADONE HCL 40 MG DISPERSABLE TABLET ONE (03:14)
[2019-11-01] MEDS: METHADONE 40 MG, METHADONE 10 MG PO SCH (06:10)
[2019-11-01] MEDS: VALSARTAN 160 MG TABLET (UD) PO SCH (06:10)
[2019-11-01] MEDS: FLUoxetine HCL 10 MG CAPSULE PO SCH (09:39)
[2019-11-01] MEDS: PRENATAL VITAMINS W/ FOLIC ACID TABLET (FP) PO SCH (09:39)
[2019-11-01] MEDS: NICOTINE 7 MG/24 HOURS TOPICAL PATCH TD SCH (09:39)
[2019-11-01] MEDS: HYDROCHLOROTHIAZIDE 25 MG TABLET (FP) PO SCH ×2 (09:39→18:23)
[2019-11-01] MEDS: THIAMINE HCL 100 MG TABLET (FP) PO SCH (21:26)
[2019-11-01] MEDS: MELATONIN 5 MG TABLETS PO SCH (21:26)
[2019-11-02] MEDS ORDERED: METHADONE HCL 10 MG TABLET PO SCH (06:00)
[2019-11-02] MEDS ORDERED: METHADONE HCL 40 MG DISPERSABLE TABLET ONE (06:25)
[2019-11-02] MEDS: METHADONE 40 MG, METHADONE 10 MG PO SCH (06:26)
[2019-11-02] MEDS ORDERED: METHADONE HCL 10 MG TABLET ONE (06:26)
[2019-11-02] MEDS: VALSARTAN 160 MG TABLET (UD) PO SCH (06:26)
[2019-11-02] MEDS: NICOTINE 7 MG/24 HOURS TOPICAL PATCH TD SCH (09:41)
[2019-11-02] MEDS: FLUoxetine HCL 10 MG CAPSULE PO SCH (09:41)
[2019-11-02] MEDS: PRENATAL VITAMINS W/ FOLIC ACID TABLET (FP) PO SCH (09:41)
[2019-11-02] MEDS: HYDROCHLOROTHIAZIDE 25 MG TABLET (FP) PO SCH ×2 (09:41→18:42)
[2019-11-02] MEDS: THIAMINE HCL 100 MG TABLET (FP) PO SCH (21:14)
[2019-11-02] MEDS: MELATONIN 5 MG TABLETS PO SCH (21:15)
[2019-11-03] MEDS ORDERED: METHADONE HCL 10 MG TABLET ONE (05:34)
[2019-11-03] MEDS ORDERED: METHADONE HCL 40 MG DISPERSABLE TABLET ONE (05:34)
[2019-11-03] MEDS: VALSARTAN 160 MG TABLET (UD) PO SCH (06:16)
[2019-11-03] MEDS: METHADONE 40 MG, METHADONE 10 MG PO SCH (06:16)
[2019-11-03] MEDS: HYDROCHLOROTHIAZIDE 25 MG TABLET (FP) PO SCH ×2 (10:06→18:33)
[2019-11-03] MEDS: FLUoxetine HCL 10 MG CAPSULE PO SCH (10:06)
[2019-11-03] MEDS: NICOTINE 7 MG/24 HOURS TOPICAL PATCH TD SCH (10:07)
[2019-11-03] MEDS: PRENATAL VITAMINS W/ FOLIC ACID TABLET (FP) PO SCH (10:07)
[2019-11-03] MEDS: MELATONIN 5 MG TABLETS PO SCH (21:29)
[2019-11-03] MEDS: THIAMINE HCL 100 MG TABLET (FP) PO SCH (21:29)
[2019-11-04] MEDS ORDERED: METHADONE HCL 40 MG DISPERSABLE TABLET ONE (05:33)
[2019-11-04] MEDS ORDERED: METHADONE HCL 10 MG TABLET ONE (05:33)
[2019-11-04] MEDS: METHADONE 40 MG, METHADONE 10 MG PO SCH (06:30)
[2019-11-04] MEDS: VALSARTAN 160 MG TABLET (UD) PO SCH (06:30)
[2019-11-04] MEDS: HYDROCHLOROTHIAZIDE 25 MG TABLET (FP) PO SCH ×2 (10:26→18:05)
[2019-11-04] MEDS: FLUoxetine HCL 10 MG CAPSULE PO SCH (10:26)
[2019-11-04] MEDS: PRENATAL VITAMINS W/ FOLIC ACID TABLET (FP) PO SCH (10:26)
[2019-11-04] MEDS: NICOTINE 7 MG/24 HOURS TOPICAL PATCH TD SCH (10:26)
[2019-11-04] MEDS: THIAMINE HCL 100 MG TABLET (FP) PO SCH (21:13)
[2019-11-04] MEDS: MELATONIN 5 MG TABLETS PO SCH (21:13)
[2019-11-05] MEDS ORDERED: METHADONE HCL 10 MG TABLET ONE (05:10)
[2019-11-05] MEDS ORDERED: METHADONE HCL 40 MG DISPERSABLE TABLET ONE (05:10)
[2019-11-05] MEDS: METHADONE 40 MG, METHADONE 10 MG PO SCH (06:53)
[2019-11-05] MEDS: VALSARTAN 160 MG TABLET (UD) PO SCH (06:53)
[2019-11-05] MEDS: HYDROCHLOROTHIAZIDE 25 MG TABLET (FP) PO SCH ×2 (09:51→18:26)
[2019-11-05] MEDS: FLUoxetine HCL 10 MG CAPSULE PO SCH (09:51)
[2019-11-05] MEDS: NICOTINE 7 MG/24 HOURS TOPICAL PATCH TD SCH (09:51)
[2019-11-05] MEDS: PRENATAL VITAMINS W/ FOLIC ACID TABLET (FP) PO SCH (09:51)
[2019-11-05] MEDS: MELATONIN 5 MG TABLETS PO SCH (21:23)
[2019-11-05] MEDS: THIAMINE HCL 100 MG TABLET (FP) PO SCH (21:23)
[2019-11-06] MEDS ORDERED: METHADONE HCL 40 MG DISPERSABLE TABLET ONE (03:42)
[2019-11-06] MEDS ORDERED: METHADONE HCL 10 MG TABLET ONE (03:42)
[2019-11-06] MEDS ORDERED: PT OWN MED DRAWER 7, Y5N ONE (03:43)
[2019-11-06] MEDS: METHADONE 40 MG, METHADONE 10 MG PO SCH (06:46)
[2019-11-06] MEDS: VALSARTAN 160 MG TABLET (UD) PO SCH (06:46)
[2019-11-06] MEDS: HYDROCHLOROTHIAZIDE 25 MG TABLET (FP) PO SCH ×2 (10:38→18:10)
[2019-11-06] MEDS: NICOTINE 7 MG/24 HOURS TOPICAL PATCH TD SCH (10:38)
[2019-11-06] MEDS: FLUoxetine HCL 10 MG CAPSULE PO SCH (10:38)
[2019-11-06] MEDS: PRENATAL VITAMINS W/ FOLIC ACID TABLET (FP) PO SCH (10:38)
[2019-11-06] MEDS: MELATONIN 5 MG TABLETS PO SCH (21:17)
[2019-11-06] MEDS: THIAMINE HCL 100 MG TABLET (FP) PO SCH (21:17)
[2019-11-07] MEDS ORDERED: METHADONE HCL 40 MG DISPERSABLE TABLET ONE (03:25)
[2019-11-07] MEDS ORDERED: METHADONE HCL 10 MG TABLET ONE (03:25)
[2019-11-07] MEDS: METHADONE 40 MG, METHADONE 10 MG PO SCH (06:17)
[2019-11-07] MEDS: VALSARTAN 160 MG TABLET (UD) PO SCH (06:17)
[2019-11-07] MEDS: HYDROCHLOROTHIAZIDE 25 MG TABLET (FP) PO SCH ×2 (09:43→18:10)
[2019-11-07] MEDS: PRENATAL VITAMINS W/ FOLIC ACID TABLET (FP) PO SCH (09:43)
[2019-11-07] MEDS: FLUoxetine HCL 10 MG CAPSULE PO SCH (09:43)
[2019-11-07] MEDS: NICOTINE 7 MG/24 HOURS TOPICAL PATCH TD SCH (09:43)
[2019-11-07] MEDS: MELATONIN 5 MG TABLETS PO SCH (21:26)
[2019-11-07] MEDS: THIAMINE HCL 100 MG TABLET (FP) PO SCH (21:26)
[2019-11-08] MEDS ORDERED: METHADONE HCL 40 MG DISPERSABLE TABLET ONE (05:33)
[2019-11-08] MEDS ORDERED: METHADONE HCL 10 MG TABLET ONE (05:33)
[2019-11-08] MEDS: METHADONE 40 MG, METHADONE 10 MG PO SCH (06:28)
[2019-11-08] MEDS: VALSARTAN 160 MG TABLET (UD) PO SCH (06:28)
[2019-11-08] MEDS: NICOTINE 7 MG/24 HOURS TOPICAL PATCH TD SCH (10:21)
[2019-11-08] MEDS: PRENATAL VITAMINS W/ FOLIC ACID TABLET (FP) PO SCH (10:21)
[2019-11-08] MEDS: FLUoxetine HCL 10 MG CAPSULE PO SCH (10:21)
[2019-11-08] MEDS: HYDROCHLOROTHIAZIDE 25 MG TABLET (FP) PO SCH ×2 (10:21→18:58)
[2019-11-08] MEDS: MELATONIN 5 MG TABLETS PO SCH (21:03)
[2019-11-08] MEDS: THIAMINE HCL 100 MG TABLET (FP) PO SCH (21:03)
[2019-11-09] MEDS: VALSARTAN 160 MG TABLET (UD) PO SCH (06:28)
[2019-11-09] MEDS ORDERED: METHADONE HCL 10 MG TABLET PO SCH (06:30)
[2019-11-09] MEDS ORDERED: METHADONE HCL 40 MG DISPERSABLE TABLET ONE (06:56)
[2019-11-09] MEDS ORDERED: METHADONE HCL 10 MG TABLET ONE (06:56)
[2019-11-09] MEDS: METHADONE 40 MG, METHADONE 10 MG PO SCH (06:57)
[2019-11-09] MEDS: PRENATAL VITAMINS W/ FOLIC ACID TABLET (FP) PO SCH (09:41)
[2019-11-09] MEDS: HYDROCHLOROTHIAZIDE 25 MG TABLET (FP) PO SCH ×2 (09:41→18:59)
[2019-11-09] MEDS: NICOTINE 7 MG/24 HOURS TOPICAL PATCH TD SCH (09:41)
[2019-11-09] MEDS: FLUoxetine HCL 10 MG CAPSULE PO SCH (09:41)
[2019-11-09] MEDS: THIAMINE HCL 100 MG TABLET (FP) PO SCH (21:25)
[2019-11-09] MEDS: MELATONIN 5 MG TABLETS PO SCH (21:25)
[2019-11-10] MEDS ORDERED: METHADONE HCL 40 MG DISPERSABLE TABLET ONE (05:35)
[2019-11-10] MEDS ORDERED: METHADONE HCL 10 MG TABLET ONE (05:35)
[2019-11-10] MEDS: VALSARTAN 160 MG TABLET (UD) PO SCH (06:19)
[2019-11-10] MEDS: METHADONE 40 MG, METHADONE 10 MG PO SCH (06:19)
[2019-11-10] MEDS: PRENATAL VITAMINS W/ FOLIC ACID TABLET (FP) PO SCH (09:34)
[2019-11-10] MEDS: HYDROCHLOROTHIAZIDE 25 MG TABLET (FP) PO SCH ×2 (09:34→18:03)
[2019-11-10] MEDS: FLUoxetine HCL 10 MG CAPSULE PO SCH (09:34)
[2019-11-10] MEDS: NICOTINE 7 MG/24 HOURS TOPICAL PATCH TD SCH (09:34)
[2019-11-10] MEDS: MELATONIN 5 MG TABLETS PO SCH (21:00)
[2019-11-10] MEDS: THIAMINE HCL 100 MG TABLET (FP) PO SCH (21:00)
[2019-11-11] MEDS ORDERED: METHADONE HCL 40 MG DISPERSABLE TABLET ONE (03:19)
[2019-11-11] MEDS ORDERED: METHADONE HCL 10 MG TABLET ONE (03:20)
[2019-11-11] MEDS: VALSARTAN 160 MG TABLET (UD) PO SCH (06:30)
[2019-11-11] MEDS: METHADONE 40 MG, METHADONE 10 MG PO SCH (06:30)
[2019-11-11 07:21] VITALS: TEMP 97
--- NOTE | 2019-11-11 08:49 | DS ---
[facility] Rehab Discharge Summary - [facility] Rehab Discharge Summary Admission Date: 10/18/19 Discharge Date: 11/11/19 - History Present History: Alcohol dependence, Cocaine dependence, Opioid dependence Pertinent Past History: Patient is a 78 y.o. 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 Pt. endorses cocaine use 40$ a day snorting. - Discharge Physical Exam Vital Signs: Vital Signs Temperature 97 F L 11/11/19 06:28 Pulse Rate 68 11/11/19 06:28 Respiratory Rate 18 11/11/19 06:28 Blood Pressure 167/73 11/11/19 06:28 O2 Sat by Pulse Oximetry (%) 97 11/11/19 06:28 Pertinent Admission Physical Exam Findings: Physical General Appearance: No apparent distress Respiratory: No Respiratory Distress, No Accessory Muscle Use Abdominal: +Bowel Sounds, Non Tender, Flat, Soft Neurological: Fully Oriented, Alert, MSK: full weight bearing, steady gait, full ROM - Treatment Discharge Condition: Discharge condition good (Medically stable for discharge.), Outpatient referral accepted (Patient will go to [facility]) Hospital Course: Patient attended groups, had 1:1 with his counselor, and was seen by the psychiatric service. He was adherent to his medication regimen and treatment plan. He had elevated BP while in rehab, that was treated by adding HCTZ to his regimen. Although his BP was lower with medication, it is not optimal and he is advised to follow up with his PCP. - Medication Discharge Medications: Ambulatory Orders Fluoxetine HCl [Prozac -] 10 mg PO DAILY 10/14/19 Methadone [Dolophine -] 50 mg PO DAILY 10/14/19 Mirtazapine 15 mg PO HS 10/14/19 Quetiapine Fumarate [Seroquel -] 100 mg PO DAILY 10/14/19 Valsartan [Diovan] 160 mg PO DAILY #14 tablet 11/11/19 - Medication-Assisted Treatment (MAT) Medication-Assisted Treatment (MAT): Yes MAT Follow-up Referral: [facility] at [facility] - Discharge Instructions Diet, activity, other medical instructions: Diet: Activity: Other medical instructions: - Diagnosis (1) Alcohol use disorder Current Visit: Yes Status: Chronic (2) Cocaine dependence Current Visit: Yes Status: Chronic (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
[2019-11-11 09:16] VITALS: BP 153/76; PULSE 60
[2019-11-11] MEDS: NICOTINE 7 MG/24 HOURS TOPICAL PATCH TD SCH (09:42)
[2019-11-11] MEDS: FLUoxetine HCL 10 MG CAPSULE PO SCH (09:42)
[2019-11-11] MEDS: PRENATAL VITAMINS W/ FOLIC ACID TABLET (FP) PO SCH (09:42)
[2019-11-11] MEDS: HYDROCHLOROTHIAZIDE 25 MG TABLET (FP) PO SCH (09:42)
--- NOTE | 2019-11-11 10:14 | PN ---
[facility] Progress Note Note: Psychiatric nurse practitioner note: Patient scheduled for discharge today. A 30 day prescription of Prozac 10mg was electronically sent to [facility] [place] [address].
== END 2019-11-11 11:05 | disposition home or self-care (01) | DRG 895 ==
LOC: YASAS 11:23 → Y3W 11:25
PROVIDERS: ADMIT Allergy & Immunology; ATTEND Allergy & Immunology
PROC: HZ42ZZZ Group Counseling for Substance Abuse Treatment, Cognitive-Behavioral (ICD-10-PCS; principal; 2019-10-18)
DX: F10.20 Alcohol dependence, uncomplicated (principal); F14.20 Cocaine dependence, uncomplicated; F11.20 Opioid dependence, uncomplicated; F32.9 Major depressive disorder, single episode, unspecified; I10 Essential (primary) hypertension; R40.4 Transient alteration of awareness; Z87.01 Personal history of pneumonia (recurrent); Z86.19 Personal history of other infectious and parasitic diseases; Z87.19 Personal history of other diseases of the digestive system

== ENCOUNTER 2021-01-08 13:20 | Inpatient (IN) | payer OTHER ==
[2021-01-08] MEDS ORDERED: ACETAMINOPHEN 325 MG TABLET (FP) PO PRN (13:51)
[2021-01-08] MEDS ORDERED: LOPERAMIDE HCL 2 MG CAPSULE PO PRN (13:51)
[2021-01-08] MEDS ORDERED: MAG HYDROX/AL HYDROX/SIMETH 30 ML UNIT-DOSE CUP PO PRN (13:51)
[2021-01-08] MEDS ORDERED: P-EPHED 60MG/TRIPROLIDI 2.5MG TABLET PO PRN (13:51)
[2021-01-08] MEDS ORDERED: guaiFENesin 200 MG/10 ML 10 ML UNIT-DOSE CUPS PO PRN (13:51)
[2021-01-08] MEDS ORDERED: MAGNESIUM HYDROX 2400MG/30ML ORAL SUSPENSION 30 ML CUP PO PRN (13:51)
[2021-01-08] MEDS ORDERED: MAGNESIUM CITRATE 300 ML BOTTLE PO PRN (13:51)
[2021-01-08 14:24] VITALS: BMI 27.9
[2021-01-08] MEDS: PRENATAL VITAMINS W/ FOLIC ACID TABLET (FP) PO SCH (17:20)
[2021-01-08] MEDS: hydrOXYzine PAMOATE 25 MG CAPSULE (FP) PO PRN (21:22)
[2021-01-08] MEDS: THIAMINE HCL 100 MG TABLET (FP) PO SCH (21:22)
[2021-01-08] MEDS: MELATONIN 5 MG TABLETS PO SCH (21:22)
[2021-01-09] MEDS ORDERED: methaDONE HCL 10 MG TABLET PO SCH (08:00)
[2021-01-09] MEDS ORDERED: methaDONE 40 MG, methaDONE 20 MG PO ONE (09:00)
[2021-01-09 10:19] LABS: HEMOGLOBIN 13.6 GM/dL (11.7-16.9); MCHC 34.1 g/dl (32.0-35.9); MEAN CELL VOLUME 93.8 fl (80-96); MEAN PLT VOLUME 9.7 fl (7.5-11.1); PLATELET COUNT 282 10^3/uL (134-434); RBC 4.26 M/mm3 (4.00-5.60); RDW 13.5 % (11.9-15.9)
[2021-01-09] MEDS ORDERED: methaDONE HCL 40 MG DISPERSABLE TABLET ONE (10:40)
[2021-01-09] MEDS ORDERED: methaDONE HCL 10 MG TABLET ONE (10:40)
[2021-01-09] MEDS: PRENATAL VITAMINS W/ FOLIC ACID TABLET (FP) PO SCH (10:42)
[2021-01-09] MEDS: VALSARTAN 160 MG TABLET PO SCH (11:17)
[2021-01-09] MEDS ORDERED: FLU VACC QS2021-22(6MOS UP)/PF 60 MCG/0.5 ML SYRINGE IM ONE (12:00)
[2021-01-09] MEDS ORDERED: cloNIDine HCL 0.1 MG TABLET PO ONE (13:45)
[2021-01-09 17:45] LABS: ALBUMIN 3.1 g/dl (3.4-5.0); BILIRUBIN,TOTAL 0.4 mg/dL (0.2-1); BLOOD UREA NITROGEN 16.8 mg/dL (7-18); CALCIUM 8.9 mg/dL (8.5-10.1); TOT PROT 7.6 g/dl (6.4-8.2)
[2021-01-09] MEDS ORDERED: PT OWN MED DRAWER 7, Y5N ONE (19:11)
[2021-01-09] MEDS: THIAMINE HCL 100 MG TABLET (FP) PO SCH (21:53)
[2021-01-09] MEDS: MELATONIN 5 MG TABLETS PO SCH (21:53)
[2021-01-09] MEDS: hydrALAZINE HCL 25 MG TABLET (FP) PO SCH (21:55)
[2021-01-09] MEDS: hydrOXYzine PAMOATE 25 MG CAPSULE (FP) PO PRN (21:56)
[2021-01-09] MEDS: IBUPROFEN 400 MG TABLET (FP) PO PRN (23:11)
[2021-01-09 23:50] LABS: PH,URINE 7.5 (5.0-8.0); URINE APPEARANCE CLEAR; URINE BILIRUBIN NEGATIVE (NEGATIVE); URINE COLOR YELLOW; URINE GLUCOSE (UA) NEGATIVE (NEGATIVE); URINE KETONE NEGATIVE (NEGATIVE); URINE LEUK ESTERASE NEGATIVE (NEGATIVE); URINE NITRITE NEGATIVE (NEGATIVE); URINE PROTEIN NEGATIVE (NEGATIVE); URINE UROBILINOGEN 0.2 mg/dL (0.2-1.0)
[2021-01-10] MEDS ORDERED: methaDONE HCL 10 MG TABLET ONE (06:09)
[2021-01-10] MEDS ORDERED: methaDONE HCL 40 MG DISPERSABLE TABLET ONE (06:09)
[2021-01-10] MEDS: methaDONE 40 MG, methaDONE 20 MG PO SCH (06:10)
[2021-01-10] MEDS: PRENATAL VITAMINS W/ FOLIC ACID TABLET (FP) PO SCH (10:14)
[2021-01-10] MEDS: hydrALAZINE HCL 25 MG TABLET (FP) PO SCH ×2 (10:14→21:29)
[2021-01-10] MEDS: VALSARTAN 160 MG TABLET PO SCH (10:14)
[2021-01-10] MEDS: MELATONIN 5 MG TABLETS PO SCH (21:30)
[2021-01-10] MEDS: THIAMINE HCL 100 MG TABLET (FP) PO SCH (21:30)
[2021-01-10] MEDS: IBUPROFEN 400 MG TABLET (FP) PO PRN (21:31)
[2021-01-11] MEDS ORDERED: methaDONE HCL 40 MG DISPERSABLE TABLET ONE (03:53)
[2021-01-11] MEDS ORDERED: methaDONE HCL 10 MG TABLET ONE (03:53)
[2021-01-11] MEDS ORDERED: PT OWN MED DRAWER 7, Y5N ONE (04:07)
[2021-01-11] MEDS: hydrOXYzine PAMOATE 25 MG CAPSULE (FP) PO PRN ×2 (06:09→10:17)
[2021-01-11] MEDS: methaDONE 40 MG, methaDONE 20 MG PO SCH (06:09)
[2021-01-11] MEDS: VALSARTAN 160 MG TABLET PO SCH (10:17)
[2021-01-11] MEDS: PRENATAL VITAMINS W/ FOLIC ACID TABLET (FP) PO SCH (10:17)
[2021-01-11] MEDS: hydrALAZINE HCL 25 MG TABLET (FP) PO SCH ×2 (10:18→21:24)
[2021-01-11] MEDS: IBUPROFEN 400 MG TABLET (FP) PO PRN (17:01)
[2021-01-11] MEDS: THIAMINE HCL 100 MG TABLET (FP) PO SCH (21:24)
[2021-01-11] MEDS: MELATONIN 5 MG TABLETS PO SCH (21:24)
[2021-01-12] MEDS ORDERED: methaDONE HCL 10 MG TABLET ONE (03:09)
[2021-01-12] MEDS ORDERED: methaDONE HCL 40 MG DISPERSABLE TABLET ONE (03:09)
[2021-01-12] MEDS: hydrOXYzine PAMOATE 25 MG CAPSULE (FP) PO PRN (05:59)
[2021-01-12] MEDS: methaDONE 40 MG, methaDONE 20 MG PO SCH (05:59)
[2021-01-12] MEDS ORDERED: PT OWN MED DRAWER 7, Y5N ONE (08:58)
[2021-01-12] MEDS: PRENATAL VITAMINS W/ FOLIC ACID TABLET (FP) PO SCH (10:27)
[2021-01-12] MEDS: hydrALAZINE HCL 25 MG TABLET (FP) PO SCH ×2 (10:28→21:39)
[2021-01-12] MEDS: VALSARTAN 160 MG TABLET PO SCH (10:28)
[2021-01-12] MEDS: THIAMINE HCL 100 MG TABLET (FP) PO SCH (21:39)
[2021-01-12] MEDS: MELATONIN 5 MG TABLETS PO SCH (21:39)
[2021-01-12] MEDS: IBUPROFEN 400 MG TABLET (FP) PO PRN (21:40)
[2021-01-13] MEDS ORDERED: methaDONE HCL 40 MG DISPERSABLE TABLET ONE (03:11)
[2021-01-13] MEDS ORDERED: methaDONE HCL 10 MG TABLET ONE (03:11)
[2021-01-13] MEDS: methaDONE 40 MG, methaDONE 20 MG PO SCH (06:36)
[2021-01-13] MEDS: VALSARTAN 160 MG TABLET PO SCH (10:24)
[2021-01-13] MEDS: PRENATAL VITAMINS W/ FOLIC ACID TABLET (FP) PO SCH (10:24)
[2021-01-13] MEDS: hydrALAZINE HCL 25 MG TABLET (FP) PO SCH ×2 (10:24→21:40)
[2021-01-13] MEDS: THIAMINE HCL 100 MG TABLET (FP) PO SCH (21:40)
[2021-01-13] MEDS: MELATONIN 5 MG TABLETS PO SCH (21:40)
[2021-01-14] MEDS ORDERED: methaDONE HCL 40 MG DISPERSABLE TABLET ONE (03:34)
[2021-01-14] MEDS ORDERED: methaDONE HCL 10 MG TABLET ONE (03:34)
[2021-01-14] MEDS: hydrOXYzine PAMOATE 25 MG CAPSULE (FP) PO PRN ×2 (06:26→21:21)
[2021-01-14] MEDS: methaDONE 40 MG, methaDONE 20 MG PO SCH (06:26)
[2021-01-14] MEDS: PRENATAL VITAMINS W/ FOLIC ACID TABLET (FP) PO SCH (10:27)
[2021-01-14] MEDS: VALSARTAN 160 MG TABLET PO SCH (10:27)
[2021-01-14] MEDS: hydrALAZINE HCL 25 MG TABLET (FP) PO SCH ×2 (10:27→21:21)
[2021-01-14] MEDS: THIAMINE HCL 100 MG TABLET (FP) PO SCH (21:21)
[2021-01-14] MEDS: MELATONIN 5 MG TABLETS PO SCH (21:21)
[2021-01-14] MEDS: IBUPROFEN 400 MG TABLET (FP) PO PRN (21:22)
[2021-01-14 22:42] LABS: SYPHILIS W/ RPR CONF NON-REACTIVE (NONREACTIVE)
[2021-01-15] MEDS ORDERED: methaDONE HCL 40 MG DISPERSABLE TABLET ONE (02:54)
[2021-01-15] MEDS ORDERED: methaDONE HCL 10 MG TABLET ONE (02:54)
[2021-01-15] MEDS: hydrOXYzine PAMOATE 25 MG CAPSULE (FP) PO PRN ×3 (06:03→21:27)
[2021-01-15] MEDS: methaDONE 40 MG, methaDONE 20 MG PO SCH (06:04)
[2021-01-15] MEDS: PRENATAL VITAMINS W/ FOLIC ACID TABLET (FP) PO SCH (10:46)
[2021-01-15] MEDS: hydrALAZINE HCL 25 MG TABLET (FP) PO SCH ×2 (10:47→21:27)
[2021-01-15] MEDS: VALSARTAN 160 MG TABLET PO SCH (10:47)
[2021-01-15] MEDS: THIAMINE HCL 100 MG TABLET (FP) PO SCH (21:27)
[2021-01-15] MEDS: MELATONIN 5 MG TABLETS PO SCH (21:28)
[2021-01-16] MEDS ORDERED: methaDONE HCL 10 MG TABLET ONE (03:14)
[2021-01-16] MEDS ORDERED: methaDONE HCL 40 MG DISPERSABLE TABLET ONE (03:14)
[2021-01-16] MEDS: methaDONE 40 MG, methaDONE 20 MG PO SCH (06:10)
[2021-01-16] MEDS: hydrOXYzine PAMOATE 25 MG CAPSULE (FP) PO PRN ×2 (06:10→09:42)
[2021-01-16] MEDS: hydrALAZINE HCL 25 MG TABLET (FP) PO SCH ×2 (09:42→21:00)
[2021-01-16] MEDS: PRENATAL VITAMINS W/ FOLIC ACID TABLET (FP) PO SCH (09:42)
[2021-01-16] MEDS: VALSARTAN 160 MG TABLET PO SCH (09:43)
[2021-01-16] MEDS: THIAMINE HCL 100 MG TABLET (FP) PO SCH (21:00)
[2021-01-16] MEDS: MELATONIN 5 MG TABLETS PO SCH (21:00)
[2021-01-16] MEDS: IBUPROFEN 400 MG TABLET (FP) PO PRN (21:01)
[2021-01-17] MEDS ORDERED: methaDONE HCL 40 MG DISPERSABLE TABLET ONE (02:59)
[2021-01-17] MEDS ORDERED: methaDONE HCL 10 MG TABLET ONE (02:59)
[2021-01-17] MEDS: methaDONE 40 MG, methaDONE 20 MG PO SCH (06:01)
[2021-01-17] MEDS: hydrOXYzine PAMOATE 25 MG CAPSULE (FP) PO PRN (06:01)
[2021-01-17 07:00] VITALS: TEMP 98.4
[2021-01-17 10:24] VITALS: BP 157/74; PULSE 60
[2021-01-17] MEDS: hydrALAZINE HCL 25 MG TABLET (FP) PO SCH (10:53)
[2021-01-17] MEDS: PRENATAL VITAMINS W/ FOLIC ACID TABLET (FP) PO SCH (10:53)
[2021-01-17] MEDS: VALSARTAN 160 MG TABLET PO SCH (10:53)
== END 2021-01-17 15:29 | disposition home or self-care (01) | DRG 895 ==
LOC: YASAS 13:20 → Y3W 15:36
PROVIDERS: ADMIT Allergy & Immunology; ATTEND Allergy & Immunology
PROC: HZ42ZZZ Group Counseling for Substance Abuse Treatment, Cognitive-Behavioral (ICD-10-PCS; principal; 2021-01-08)
DX: F10.20 Alcohol dependence, uncomplicated (principal); F11.20 Opioid dependence, uncomplicated; F14.20 Cocaine dependence, uncomplicated; F19.24 Other psychoactive substance dependence with psychoactive substance-induced mood disorder; I10 Essential (primary) hypertension; R00.1 Bradycardia, unspecified; I49.9 Cardiac arrhythmia, unspecified; K74.60 Unspecified cirrhosis of liver; R26.2 Difficulty in walking, not elsewhere classified; Z99.89 Dependence on other enabling machines and devices; Z91.14 Patient's other noncompliance with medication regimen
CPT/HCPCS: 36415; 80053; 81003; 85027; 86780; 86803; 87811; 90686; 93005; 93010; C9803; G0008; J0735; U0003; U0005